=== PATIENT | female | born 1940 | race Caucasian/White ===

== ENCOUNTER → 2016-09-22 | Outpatient (CLI) | payer MEDICARE ==
--- NOTE | 2016-09-23 07:48 | XR ---
EXAMINATION TYPE: XR chest 2V DATE OF EXAM: 09/22/2016 9:20 AM COMPARISON: NONE HISTORY: Shortness of breath TECHNIQUE: Frontal and lateral views of the chest are obtained. FINDINGS: Scattered senescent parenchymal changes noted. Hyperinflation compatible with COPD. No evidence for infiltrate. No evidence for atelectasis. Heart size is stable. Mediastinal structures are stable and grossly unremarkable. No evidence for hilar prominence. Degenerative changes dorsal spine. IMPRESSION: 1. No evidence for acute pulmonary disease.
== END | disposition home or self-care (01) ==
LOC: RADXRYALE 09:02
PROVIDERS: ATTEND Otolaryngology
DX: J40 Bronchitis, not specified as acute or chronic (principal)
CPT/HCPCS: 71020

== ENCOUNTER → 2017-09-07 | Outpatient (CLI) | payer MEDICARE ==
--- NOTE | 2017-09-07 14:13 | XR ---
EXAMINATION TYPE: XR chest 2V DATE OF EXAM: 09/07/2017 COMPARISON: 09/22/2016 TECHNIQUE: PA and lateral views submitted. HISTORY: Cough FINDINGS: The lungs are clear and there is no pneumothorax, pleural effusion, or focal pneumonia. The heart i s enlarged. Hypertrophic and degenerative change of the spine noted. No overt failure. Biapical pleur al thickening. Arthropathy of the shoulders. IMPRESSION: 1. No acute process.
== END | disposition home or self-care (01) ==
LOC: RADXRYALE 13:57
PROVIDERS: ATTEND Otolaryngology
DX: J42 Unspecified chronic bronchitis (principal)
CPT/HCPCS: 71046

== ENCOUNTER 2020-03-30 19:53 | Inpatient (IN) | payer MEDICARE ==
[2020-03-30] MEDS ORDERED: SODIUM CHLORIDE 0.9% 1,000 ML IV ONE (20:10)
[2020-03-30] MEDS ORDERED: ASPIRIN 81 MG PO STA (20:10)
[2020-03-30 20:39] LABS: Basophils # (A) 0.1 k/uL (0-0.2); Basophils % (A) 1 %; Eosinophils # (A) 0.1 k/uL (0-0.7); Eosinophils % (A) 1 %; HCT 48.1 % (34.0-46.0); HGB 15.4 gm/dL (11.4-16.0); Lymphocytes # (A) 1.9 k/uL (1.0-4.8); Lymphocytes % (A) 17 %; MCH 27.5 pg (25.0-35.0); MCHC 31.9 g/dL (31.0-37.0); MCV 86.2 fL (80.0-100.0); Mean Platelet Volume 9.5; Monocytes # (A) 1.1 k/uL (0-1.0); Monocytes % (A) 10 %; Neutrophils % (A) 71 %; Platelet Count 236 k/uL (150-450); RBC 5.58 m/uL (3.80-5.40); RDW 13.8 % (11.5-15.5); WBC 11.4 k/uL (3.8-10.6)
[2020-03-30] MEDS ORDERED: NOREPINEPHRINE 4 MG in SODIUM CHLORIDE 0.9% 250 ML IV SCH (20:45)
[2020-03-30 20:52] LABS: Albumin 3.7 g/dL (3.5-5.0); Calcium 9.3 mg/dL (8.4-10.2); Magnesium 1.7 mg/dL (1.6-2.3); Potassium 4.6 mmol/L (3.5-5.1); Total Bilirubin 0.9 mg/dL (0.2-1.3); Total Protein 6.1 g/dL (6.3-8.2)
[2020-03-30 20:54] LABS: INR 0.9 (<1.2); Partial Thromboplastin Time 21.6 sec (22.0-30.0); Prothrombin Time 9.9 sec (9.0-12.0)
--- NOTE | 2020-03-30 20:56 | ED ---
Chest Pain HPI - General Chief Complaint: Chest Pain Stated Complaint: Chest Pain, SOB Time Seen by Provider: 03/30/20 20:10 Source: patient Mode of arrival: wheelchair - History of Present Illness Initial Comments: Patient is an 79-year-old female presents emergency Department with reported diaphoresis. Patient reports that earlier today she had a headache. Daughter states that this is common for her to have when the weather changes. There is nothing new or different about her headache. Around 6 PM she suddenly felt like she was going to pass out. She felt extremely diaphoretic and fatigue. Patient arrives pale, bradycardic and hypotensive. She has a history of diabetes. Denies any recent medication changes. States that she has chest pressure when prompted. Denies chest pain or shortness of breath. Denies previous cardiac history. Denies any fevers or chills. No cough. No ripping or tearing sensation to her back. Denies any abdominal pain. No changes in her bowel or bladder habits. Denies any melenic stools. Remainder the HPI is limited because the patient's current condition - Related Data Home Medications Medication Instructions Recorded Confirmed Aspirin [Adult Low Dose Aspirin EC] 81 mg PO DAILY 03/30/20 03/30/20 Atorvastatin [Lipitor] 40 mg PO DAILY 03/30/20 03/30/20 Glimepiride [Amaryl] 1 mg PO DAILY 03/30/20 03/30/20 Losartan [Cozaar] 50 mg PO DAILY 03/30/20 03/30/20 amLODIPine [Norvasc] 5 mg PO DAILY 03/30/20 03/30/20 atenoloL [Atenolol] 25 mg PO DAILY 03/30/20 03/30/20 metFORMIN HCL 1,000 mg PO BID 03/30/20 03/30/20 Previous Rx's Medication Instructions Recorded Ticagrelor [Brilinta] 90 mg PO BID 30 Days #60 tab 04/03/20 Allergies Allergy/AdvReac Type Severity Reaction Status Date / Time No Known Allergies Allergy Verified 03/30/20 20:30 Review of Systems ROS Statement: Those systems with pertinent positive or pertinent negative responses have been documented in the HPI. ROS Other: All systems not noted in ROS Statement are negative. EKG Findings - EKG Comments: EKG Findings:: EKG demonstrates A. fib with a rate of 136. QRS 152. QTC of 553. Elevation leads 2, 3, aVF with depressions in V2 through V6. Right branch block Past Medical History Past Medical History: Unable to Obtain History of Any Multi-Drug Resistant Organisms: None Reported Past Surgical History: Cholecystectomy, Orthopedic Surgery Additional Past Surgical History / Comment(s): knee Past Psychological History: No Psychological Hx Reported Smoking Status: Never smoker Past Alcohol Use History: None Reported Past Drug Use History: None Reported - Past Family History Mother Family Medical History: CVA/TIA General Exam Limitations: altered mental status General appearance: alert, lethargic, other (diaphoretic) Head exam: Present: atraumatic, normocephalic, normal inspection Eye exam: Present: normal appearance, PERRL, EOMI. Absent: scleral icterus, conjunctival injection, periorbital swelling ENT exam: Present: normal exam, mucous membranes moist Neck exam: Present: normal inspection. Absent: tenderness, meningismus, lymphadenopathy Respiratory exam: Present: decreased breath sounds Cardiovascular Exam: Present: tachycardia, irregular rhythm GI/Abdominal exam: Present: soft, normal bowel sounds. Absent: distended, tenderness, guarding, rebound, rigid Extremities exam: Present: normal inspection, full ROM, normal capillary refill. Absent: tenderness, pedal edema, joint swelling, calf tenderness Back exam: Present: normal inspection Neurological exam: Present: alert Psychiatric exam: Present: flat affect Skin exam: Present: diaphoretic Course Vital Signs 03/30/20 03/30/20 03/30/20 19:54 20:33 20:35 Temperature 97.5 F L Pulse Rate 48 L 114 H 109 H Respiratory 16 25 H 23 Rate Blood Pressure 79/53 60/32 60/32 O2 Sat by Pulse 95 96 Oximetry 03/30/20 03/30/20 03/30/20 20:40 20:45 20:50 Temperature Pulse Rate 112 H 102 H 100 Respiratory 23 21 19 Rate Blood Pressure 77/35 81/21 73/55 O2 Sat by Pulse 96 96 96 Oximetry 03/30/20 03/30/20 03/30/20 20:55 21:00 21:05 Temperature Pulse Rate 120 H 137 H 135 H Respiratory 15 26 H 28 H Rate Blood Pressure 95/23 82/62 93/66 O2 Sat by Pulse 95 96 Oximetry 03/30/20 03/30/20 03/30/20 21:10 21:15 21:20 Temperature Pulse Rate 124 H 146 H 135 H Respiratory 21 22 21 Rate Blood Pressure 118/70 137/71 O2 Sat by Pulse 97 Oximetry 03/30/20 03/30/20 21:25 21:30 Temperature Pulse Rate 138 H 170 H Respiratory 21 24 Rate Blood Pressure 104/89 119/90 O2 Sat by Pulse 98 Oximetry - Reevaluation(s) Reevaluation #1: Spoke with Dr. Grace at 2020 in regards to patient's EKG. EKG sent to Dr. Grace for review at 202503/30/20 20:26 Reevaluation #2: Once again spoke to Dr. Grace who states patient does not meet STEMI criteria. Would like to be contacted about patient's continued care and labs. Recommending fluids, Levophed and lab studies 03/30/20 20:29 Reevaluation #3: Spoke to Dr. Grace regarding the patient's care. Will take patient to manager laboratory as patient remains persistently hypotensive. Few lab studies have returned, all of which are within normal range. Trop and BNP still pending. Cath team activated 03/30/20 20:54 Chest Pain MDM - MDM Upon arrival the patient is placed into room 8. A thorough history and physical exam was performed. Peripheral IV is established. Laboratory studies were conducted. I did obtain an EKG on the patient which was concerning for afib, elevation in inferior leads. I discussed the case immediately with Dr. Grace who recommended laboratory studies, fluids and further testing. The patient was given a 2 L bolus of normal saline. Blood pressure remains low. Laboratory studies were conducted and a portal chest x-ray was performed. I discussed the case with Dr. Grace twice more - details provided in course. Due to her persistent diaphoresis and hypotension with abn ekg, Dr. Grace does agree that he will take the patient to the catheterization lab. Heart rate remained anywhere from 105 to 115 for the majority in the emergency department. Levophed is started by peripheral IV. Patient given [address] Grace does present to the emergency room and evaluates the patient. He does take her upstairs. I discussed the case with Denisha from [facility] as well as Dr. Sidhu. Patient's blood work does return after the patient is already upstairs. It reveals a troponin of 2.9 and a BNP of 10,800. Patient's chest x-ray was remarkable for pleural reaction and fluid with minimal infiltrate left lung base. Patient was taken to the Lead Process [facility] in critical, yet stable condition with improving blood pressures on Levaquin Critical Care Time Critical Care Time: Yes Critical Care Time: 35 minutes Disposition Clinical Impression: Chest pain, Hypotension, Afib Disposition: ADMITTED IP TO THIS [facility] Condition: Serious Is patient prescribed a controlled substance at d/c from ED?: No Decision to Admit Reason: Admit from EC Decision Date: 03/30/20 Decision Time: 21:33
--- NOTE | 2020-03-30 21:20 | XR ---
EXAMINATION TYPE: XR chest 1V portable DATE OF EXAM: 03/30/2020 COMPARISON: 09/22/2016 HISTORY: Chest pain TECHNIQUE: Single view. There is some pleural reaction lateral left lung base. The right lung is clear. There is no heart will lure. Heart is slightly enlarged. There are chest leads. IMPRESSION: Pleural reaction and fluid and minimal infiltrate left lung base is mostly new compared t o old exam. No heart failure.
[2020-03-30] MEDS ORDERED: NALOXONE 0.4 MG/ML 1 ML VIAL IV PRN (21:33)
[2020-03-30] MEDS ORDERED: IV FLUID CONTINUATION 1,000 ML IV ONE (21:40)
[2020-03-30] MEDS ORDERED: LIDOCAINE 1% INJ 10MG/ML (20 ML MDV) SQ ONE (21:48)
[2020-03-30] MEDS ORDERED: HEPARIN SODIUM 1,000 UN/ML (10ML VL) IV ONE (21:53)
[2020-03-30] MEDS ORDERED: DEXTROSE 5% IN WATER 100 ML with AMIODARONE 150 MG IV ONE (21:53)
[2020-03-30] MEDS ORDERED: METOPROLOL TARTRATE 5 MG/5 ML VIAL IVP ONE (21:53)
[2020-03-30] MEDS ORDERED: TICAGRELOR 90 MG TAB PO ONE (22:19)
--- NOTE | 2020-03-30 22:19 | CONS ---
CONSULTATION CHIEF COMPLAINT: Chest pain. This is an 79-year-old lady with history of hypertension, diabetes, and dyslipidemia who presented to hospital with sudden onset chest pain an hour prior to coming into the hospital this evening. She describes it as a pressure radiating to her back. When she first arrived, she was in new onset atrial fibrillation with rapid ventricular rate and was hypotensive. She was resuscitated with fluids and Levophed. Heart rate has improved and the blood pressure is improved. At the time of my evaluation she still has pain. The EKG shows sinus rhythm, inferior wall myocardial infarction and right bundle branch block. Given the persistent chest pain and abnormal EKG, I advised her to undergo emergent cardiac catheterization. The patient has decided to proceed with this understanding risks and benefits. ALLERGIES: There are no known drug allergies. MEDICATIONS: Are as charted. PAST MEDICAL HISTORY: Significant for hypertension, diabetes, dyslipidemia. REVIEW OF SYSTEMS: Significant for chest pain. PHYSICAL EXAMINATION: On exam she was in atrial fibrillation with poorly controlled ventricular rate. Blood pressure is low at 110/70. There is no jugular venous distention. Carotid upstroke is normal. There is no bruit. Chest exam reveals good air entry bilaterally. Heart exam reveals first and second heart sounds. No gallop. Exam of extremities did not reveal any edema. Peripheral pulses are felt. LABS: Have been reviewed. ASSESSMENT: 1. Acute ischemic syndrome. 2. New onset atrial fibrillation with rapid ventricular rate. PLAN: Patient will undergo cardiac catheterization and then we will decide on further course of action. MMODL / IJN: [id number] /
[2020-03-30] MEDS ORDERED: IOPAMIDOL-370 125ML BTL INJ ONE (22:22)
[2020-03-30] MEDS ORDERED: ONDANSETRON 4 MG/2 ML VIAL IVP ONE (22:45)
[2020-03-30] MEDS ORDERED: FUROSEMIDE 10 MG/ML 4 ML VIAL IV ONE (22:45)
[2020-03-30] MEDS ORDERED: IOPAMIDOL-370 100ML BTL INJ ONE (22:52)
[2020-03-30] MEDS ORDERED: ATROPINE SULFATE 0.1 MG/ML 10ML SYRINGE IV PRN (23:04)
[2020-03-30] MEDS ORDERED: MAG HYDROX/AL HYDROX/SIMETH 30 ML CUP PO PRN (23:04)
[2020-03-30] MEDS ORDERED: NITROGLYCERIN SL TABS 0.4 MG TAB SUBLINGUAL PRN (23:04)
[2020-03-30] MEDS ORDERED: RX INFO: IV CONTRAST WAS GIVEN 1 EACH MISC MISCELLANE PRN (23:04)
[2020-03-30 23:08] LABS: Glucose,Whole Blood 259 mg/dL (75-99)
--- NOTE | 2020-03-30 23:25 | P.PRCINT ---
Percutaneous Coronary Int. - Percutaneous Coronary Intervention Percutaneous Coronary Intervention: Procedures performed: PCI of proximal LAD with a 2.75 x 23mm Xience drug-eluting stent, postdilated with a 3.25 noncompliant balloon, left femoral access, left ventricular pressure measurement, Angio-Seal bilateral femoral arteries Procedure performed by: Dr Michael Garay DO Indications: Non-STEMI, cardiogenic shock, cardiomyopathy, multivessel CAD HPI: Patient is a pleasant 79-year-old female with history of hypertension, hyperlipidemia, diabetes mellitus on oral medications who presents secondary to acute onset of chest pain at approximately 6 PM today. She denies similar episodes in the past. She was found to be hypotensive with initial blood pressures in the 60s and 70s in the emergency department which improved with Levophed drip. She was found to be tachycardic with heart rates 130s to 140s, diffuse ST changes with Q waves in the inferior leads and therefore catheterization lab was activated by my partner. A diagnostic heart catheterization was performed by my partner to further assess, please see separate dictation for full details. The patient was noted to have normal left main, 100% occlusion of proximal LAD, mild 30% circumflex disease, [id number] collaterals and right coronary artery 100% occluded. I was asked to evaluate and perform intervention to the LAD. Conscious sedation: Conscious sedation was performed under the direct supervision of myself using Versed and Fentanyl for a total of 44 mins. Description of procedure: The risks, benefits and alternatives of heart catheterization and PCI were explained in detail to the patient before the procedure and informed consent was obtained. Patient had diagnostic coronary angiography performed by my partner and was left on the catheterization table. Patient had been prepped and draped in the usual fashion and a 6Fr sheath had been placed in the right femoral artery by my partner. A decision was made to intervene on the LAD as prior EKG from the office had shown prior Q waves in the inferior leads and LAD with acute thrombus. Heparin was given for an ACT greater than 250. A 6Fr EBU 3.5 guide was used to engage the left main. Patient had become somewhat more hypotensive requiring increase in Levophed and therefore left femoral access was quickly obtained and a 6Fr sheath was placed in the left femoral artery. The patient however was tolerating her pressures while on increased dose of pressors and therefore an Impella was not used. A 0.014 BMW wire was placed in the distal vessel. Next predilation was performed using a 2.5 x 12 compliant balloon. A 2.75 x 23 mm Xience HUI stent was then placed at the proximal LAD. The stent was postdilated with a 3.25 noncompliant balloon. Angiograms were obtained in multiple views. Pre intervention there was 100% stenosis and TAWANDA 0 flow and post intervention there was 0% residual stenosis and TAWANDA 2 flow due to distal embolization and elevated LVEDP and no evidence of any dissection. There was "pinching" of a small caliber diagonal branch which was felt best treated medically with TAWANDA-3 flow of the diagonal branch. Next a 6-Hong Konger pigtail was inserted into the left ventricle and pressure measurements were obtained. Patient was chest pain-free by the end of the procedure however some shortness of breath. The wire was then removed and final angiograms were obtained. Right and left femoral angiography was performed which showed adequate anatomy for closure. A 6-H[place] Konger Angio-Seal was placed in both the right and left femoral artery with hemostasis achieved. The patient tolerated the procedure well with help of norepinephrine throughout the case. Patient's norepinephrine was able to be weaned off at the conclusion of the case. The patient was transferred to the ICU off of pressors. LV: 95/20, LVEDP 32mmHg Conclusions: 1. Successful PCI of proximal LAD with a 2.75 x 23mm Xience HUI, postdilated with a 3.25 noncompliant balloon. 2. Cardiogenic shock requiring pressors 3. Elevated LVEDP at 32 mmHg 4. Non-STEMI Plan: 1. Aggressive risk factor modifications per most recent ACC/AHA guidelines. 2. Continue dual antiplatelets for 12 months. 3. Check formal 2-D echo 4. Patient was given IV Lasix on the table for elevated LVEDP. Would avoid beta boris for the next 24 hours as she is in acute cardiogenic shock. Hopefully add beta boris when heart failure more stable. Optimize heart failure treatment.
[2020-03-31] MEDS ORDERED: HYDROcodone/APAP 5-325MG 1 EACH TAB PO PRN (02:00)
[2020-03-31 05:00] LABS: Basophils % (A) 0 %; Eosinophils % (A) 0 %; HCT 47.9 % (34.0-46.0); HGB 14.9 gm/dL (11.4-16.0); Hypochromasia Slight; Lymphocytes # (A) 0.8 k/uL (1.0-4.8); Lymphocytes % (A) 5 %; MCH 27.6 pg (25.0-35.0); MCHC 31.1 g/dL (31.0-37.0); MCV 88.6 fL (80.0-100.0); Mean Platelet Volume 8.6; Monocytes # (A) 1.5 k/uL (0-1.0); Monocytes % (A) 9 %; Neutrophils # (A) 14.3 k/uL (1.3-7.7); Neutrophils % (A) 85 %; Platelet Count 214 k/uL (150-450); RDW 13.7 % (11.5-15.5); WBC 16.8 k/uL (3.8-10.6)
[2020-03-31 05:22] LABS: Calcium 8.3 mg/dL (8.4-10.2); Potassium 4.5 mmol/L (3.5-5.1)
[2020-03-31 06:42] LABS: Glucose,Whole Blood 218 mg/dL (75-99)
--- NOTE | 2020-03-31 07:46 | CC ---
CARDIAC CATHETERIZATION REPORT PROCEDURE: Cardiac catheterization. INDICATION: Acute coronary syndrome with cardiogenic shock. HISTORY OF PRESENT ILLNESS: This is an 79-year-old lady with history of hypertension, diabetes, dyslipidemia, who presented to the hospital with chest pain that started around 6 o'clock this evening. Her daughter drove her to the emergency room where she was found to be in atrial fibrillation, had right bundle branch block with inferior Q-waves. I advised her to undergo emergent cardiac catheterization with a view to defining her coronary anatomy and after for catheter based revascularization. The patient was hypotensive and was initially given fluids and subsequently started on Levophed. The patient's chest pain was improving by the time I saw her in the ER, but she still had pain in the back of her chest. PROCEDURE NOTE: After obtaining after obtaining informed consent, left heart catheterization and coronary angiogram are performed via the right femoral artery using standard Tejas catheters. The patient tolerated the procedure well without any obvious immediate complications. ANESTHESIA: Patient received moderate conscious sedation. Total sedation time was 9 minutes. FINDINGS: HEMODYNAMICS: Central aortic pressure is 90/60 mm. The left ventriculogram is not performed. ANGIOGRAPHIC DATA: LEFT MAIN CORONARY ARTERY: The left main coronary artery is a normal vessel, divides into left anterior descending coronary artery and circumflex coronary artery. LEFT ANTERIOR DESCENDING CORONARY ARTERY: LAD is totally occluded proximally. CIRCUMFLEX CORONARY ARTERY: Circumflex coronary artery and its branches are free of significant disease. There are extensive collaterals to the distal right coronary artery. RIGHT CORONARY ARTERY: Right coronary artery is totally occluded in the proximal part. CONCLUSIONS: 1. Chronic total occlusion of the right coronary artery with collaterals from the left to the distal right. 2. Acute occlusion of the proximal left anterior descending. PLAN: Will proceed with angioplasty of the LAD. The patient is critically ill and her prognosis is guarded. I reviewed angiographic data and the plans with the patient's daughter doctor. Dr. Garay, the on-call printed circuit boards beveler, will proceed with the angioplasty. MMODL / IJN: [id number] /
[2020-03-31] MEDS: TICAGRELOR 90 MG TAB PO SCH ×2 (08:35→23:01)
[2020-03-31] MEDS: ASPIRIN 81 MG PO SCH (08:35)
--- NOTE | 2020-03-31 09:03 | XR ---
EXAMINATION TYPE: XR chest 1V portable DATE OF EXAM: 03/31/2020 Comparison: 03/30/2020 Clinical History: 79-year-old female with CHF Findings: Heart mildly enlarged. Aorta and pulmonary vasculature within normal limits. Continued blunting of th e left costophrenic angle. Interstitial density appears largely chronic at this point. Impression: Mild cardiomegaly and continued small left effusion with adjacent atelectasis and or consolidation.
--- NOTE | 2020-03-31 10:59 | P.CNPUL ---
History of Present Illness Consult date: 03/31/20 Requesting physician: Kira Camacho Reason for consult: other (Acute myocardial infarction) Chief complaint: Chest pain and diaphoresis. History of present illness: This is an 79-year-old female with history of hypertension, diabetes, hypercholesterolemia, no previous documented history of underlying coronary artery disease. Patient was brought into the ER with sudden episode of diaphoresis, patient suddenly broke into sweats. On her way to the hospital, patient had some vague left-sided chest pain and substernal pain. She felt extremely tired and fatigued. And upon arrival to the ER, she was noted to be hypotensive, bradycardic, and she was quite pale. EKG questioned ST elevation myocardial infarction. And she continued to have chest pain while in the ER. Seen by cardiology on consultation, and she underwent cardiac catheterization were and she was found to have significant LAD lesion underwent stenting by Dr. Garay. Postoperatively patient felt much better, sent to the intensive care unit, she is asymptomatic at this point, denies any chest pain, denies any shortness of breath, and she remained hemodynamically stable. Denies any shortness of breath. Chest x-ray in the ICU showed mild cardiomegaly and small left effusion with atelectasis. Clinically however the patient has no active pulmonary symptoms she is on 5 L nasal cannula. Tapered down to 3 L and her O2 saturation remained 97%. Review of Systems Constitutional: No fever no chills no weight loss. Patient was diaphoretic on presentation HEENT: Negative Pulmonary: Negative Cardiac: As noted in HPI. GI: Negative Genitourinary: Negative Musculoskeletal: Negative Skin: Negative Endocrine: Negative patient is known to have history of controlled diabetes. Musculoskeletal: Negative Hematologic: No clotting bleeding or bruising Neurologic: Negative Psychiatric: Negative Past Medical History Past Medical History: Unable to Obtain Additional Past Medical History / Comment(s): Patient is known to have history of hypertension, hypercholesterolemia, type 2 diabetes. Patient had previous cholecystectomy. History of Any Multi-Drug Resistant Organisms: None Reported Past Surgical History: Cholecystectomy, Orthopedic Surgery Additional Past Surgical History / Comment(s): knee Past Anesthesia/Blood Transfusion Reactions: No Reported Reaction Past Psychological History: No Psychological Hx Reported Smoking Status: Never smoker Past Alcohol Use History: None Reported Past Drug Use History: None Reported - Past Family History Mother Family Medical History: CVA/TIA Medications and Allergies Home Medications Medication Instructions Recorded Confirmed Type Aspirin [Adult Low Dose Aspirin EC] 81 mg PO DAILY 03/30/20 03/30/20 History Atorvastatin [Lipitor] 40 mg PO DAILY 03/30/20 03/30/20 History Glimepiride [Amaryl] 1 mg PO DAILY 03/30/20 03/30/20 History Losartan [Cozaar] 50 mg PO DAILY 03/30/20 03/30/20 History amLODIPine [Norvasc] 5 mg PO DAILY 03/30/20 03/30/20 History atenoloL [Atenolol] 25 mg PO DAILY 03/30/20 03/30/20 History metFORMIN HCL 1,000 mg PO BID 03/30/20 03/30/20 History Allergies Allergy/AdvReac Type Severity Reaction Status Date / Time No Known Allergies Allergy Verified 03/30/20 20:30 Physical Exam Vitals: Vital Signs Temp Pulse Pulse Resp BP BP Pulse Ox 03/31/20 07:30 67 31 H 120/69 98 03/31/20 07:00 66 27 H 109/67 96 03/31/20 06:30 67 25 H 96 03/31/20 06:00 66 23 112/59 96 03/31/20 05:30 64 24 104/77 96 03/31/20 05:00 65 26 H 107/70 96 03/31/20 04:30 66 23 101/60 96 03/31/20 04:00 97.6 F 64 26 H 99/63 96 03/31/20 03:30 65 26 H 111/69 96 03/31/20 03:00 66 26 H 111/70 95 03/31/20 02:30 65 25 H 113/85 96 03/31/20 02:00 66 30 H 115/72 97 03/31/20 01:30 65 24 110/65 97 03/31/20 01:00 68 32 H 93 L 03/31/20 00:30 66 21 112/66 96 03/31/20 00:00 96.6 F L 74 20 120/50 93 L 03/30/20 23:30 80 8 L 95 03/30/20 23:24 80 7 L 117/74 95 03/30/20 23:20 79 13 92 L 03/30/20 23:19 80 15 117/74 03/30/20 23:15 83 34 H 91 L 03/30/20 23:10 80 12 117/74 03/30/20 23:06 81 14 03/30/20 23:04 79 12 03/30/20 21:49 96.9 F L 78 12 120/50 96 03/30/20 21:35 119/90 03/30/20 21:30 170 H 24 119/90 03/30/20 21:25 138 H 21 104/89 98 03/30/20 21:20 135 H 21 97 03/30/20 21:15 146 H 22 137/71 03/30/20 21:10 124 H 21 118/70 03/30/20 21:05 135 H 28 H 93/66 96 03/30/20 21:00 137 H 26 H 82/62 95 03/30/20 20:55 120 H 15 95/23 03/30/20 20:50 100 19 73/55 96 03/30/20 20:45 102 H 21 81/21 96 03/30/20 20:40 112 H 23 77/35 96 03/30/20 20:35 109 H 23 60/32 03/30/20 20:33 114 H 25 H 60/32 96 03/30/20 19:54 97.5 F L 48 L 16 79/53 95 Intake and Output 03/30/20 03/31/20 03/31/20 22:59 06:59 14:59 Intake Total 300 140 20 Output Total 1225 60 Balance 300 -1085 -40 Intake: IV 300 140 20 .9@ 20 140 20 Output: Urine 1225 60 Other: Voiding Method Indwelling Catheter Weight 90.718 kg 85.2 kg Physical Exam: Revealed 79-year-old female in no distress. Very pleasant. Head: Atraumatic, normocephalic. HEENT:[Neck is supple.] [No neck masses.] [No thyromegaly.] [No JVD.] Chest: [Symmetrical chest expansion, diminished breath sounds at the left base, no crackles or rhonchi or wheezes. Cardiac Exam: [Normal S1 and S2, no S3 gallop, no murmur.] Abdomen: [Obese, Soft, nontender, no megaly, no rebound, no guarding, normal bowel sounds.] Extremities: [No clubbing, no edema, no cyanosis.] Neurological Exam: [No focal neurologic deficit.] Alert and oriented 3. Psychiatric: Normal mood, affect and normal mental status examination. Skin: No rashes. Lymphatics: No supraclavicular or cervical lymphadenopathy. Results - Laboratory Findings CBC and BMP: 03/31/20 04:24 03/31/20 04:24 PT/INR, D-dimer PT 9.9 sec (9.0-12.0) 03/30/20 20:26 INR 0.9 (<1.2) 03/30/20 20:26 Abnormal lab findings: Abnormal Labs 03/30/20 03/30/20 03/30/20 20:26 20:26 20:26 WBC 11.4 H RBC 5.58 H Hct 48.1 H Neutrophils # 8.0 H Lymphocytes # Monocytes # 1.1 H APTT 21.6 L Carbon Dioxide 20 L BUN 20 H Creatinine Glucose 263 H POC Glucose (mg/dL) Calcium AST 49 H Troponin I Total Protein 6.1 L 03/30/20 03/30/20 03/31/20 20:26 23:06 04:24 WBC 16.8 H RBC Hct 47.9 H Neutrophils # 14.3 H Lymphocytes # 0.8 L Monocytes # 1.5 H APTT Carbon Dioxide BUN Creatinine Glucose POC Glucose (mg/dL) 259 H Calcium AST Troponin I 2.990 H* Total Protein 03/31/20 03/31/20 03/31/20 04:24 04:24 06:41 WBC RBC Hct Neutrophils # Lymphocytes # Monocytes # APTT Carbon Dioxide BUN 23 H Creatinine 1.17 H Glucose 280 H POC Glucose (mg/dL) 218 H Calcium 8.3 L AST Troponin I 133.000 H* Total Protein - Diagnostic Findings Chest x-ray: image reviewed (As noted in HPI. Small left pleural effusion and atelectasis.) Assessment and Plan Assessment: Impression: Acute non-ST elevation myocardial infarction Status post PCI of proximal LAD Multivessel coronary artery disease Acute systolic congestive heart failure with left pleural effusion. History of type 2 diabetes. History of benign essential hypertension. History of hypercholesterolemia. Recommendation: Continue brilinta Continue nitroglycerin. Continue blood pressure control. Continue aspirin and atorvastatin. Gentle diuresis as the patient is developing fairly good sized left-sided pleural effusion and it is cardiac in nature unless for otherwise. Continue to monitor the patient in the ICU. We will continue to follow. Time with Patient: Greater than 30
[2020-03-31] MEDS ORDERED: METOPROLOL SUCCINATE (ER) 25 MG TAB.ER.24H PO SCH (11:00)
[2020-03-31] MEDS: ACETAMINOPHEN TAB 500 MG TAB PO PRN (11:15)
[2020-03-31] MEDS: LOSARTAN 25 MG TAB PO SCH (11:16)
[2020-03-31 11:24] LABS: Glucose,Whole Blood 203 mg/dL (75-99)
[2020-03-31 11:43] VITALS: BMI 30.3
[2020-03-31] MEDS: INSULIN ASPART (NovoLOG) 100 UNIT/ML VIAL SQ SCH ×3 (12:12→23:00)
--- NOTE | 2020-03-31 12:50 | ECHOF ---
Referral Reason:Stent placed MEASUREMENTS -------- HEIGHT: 160.0 cm WEIGHT: 80.7 kg BP: 114/69 RVIDd: 3.0 cm (< 3.3) IVSd: 1.3 cm (0.6 - 1.1) LVIDd: 6.0 cm (3.9 - 5.3) LVPWd: 1.6 cm (0.6 - 1.1) IVSs: 1.7 cm LVIDs: 5.2 cm LVPWs: 1.8 cm LA Diam: 3.2 cm (2.7 - 3.8) LAESV Index (A-L): 17.10 ml/m Ao Diam: 3.3 cm (2.0 - 3.7) AV Cusp: 1.7 cm (1.5 - 2.6) MV EXCURSION: 11.714 mm (> 18.000) MV EF SLOPE: 34 mm/s (70 - 150) EPSS: 2.0 cm MV E Devon: 0.39 m/s MV DecT: 506 ms MV A Devon: 0.80 m/s MV E/A Ratio: 0.49 RAP: 15.00 mmHg RVSP: 45.26 mmHg FINDINGS -------- This was a technically adequate study. The left ventricle is moderately dilated. There is moderate concentric left ventricular hypertrophy . Overall left ventricular systolic function is severely impaired with, an EF between 20 - 25 %. 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 Mid i nferior LV wall motion is hypokinetic. Apical inferior LV wall motion is hypokinetic. Apical se ptum LV wall motion is hypokinetic. The right ventricle is normal in size. Normal LA size by volume 22+/-6 ml/m2. The right atrium is normal in size. Interatrial and interventricular septum intact. There is mild aortic valve sclerosis. Trace to mild aortic regurgitation. The mitral valve is normal. Mild tricuspid regurgitation present. There is mild to moderate pulmonary hypertension. The right ventricular systolic pressure, as measured by Doppler, is 45.26mmHg. There is no pulmonic regurgitation present. The aortic root size is normal. The inferior vena cava is dilated with no significant inspiratory collapse which is consistent estima terry right atrial pressure of >20 mmHg. There is no pericardial effusion. CONCLUSIONS -------- 1. The left ventricle is moderately dilated. 2. There is moderate concentric left ventricular hypertrophy. 3. Overall left ventricular systolic function is severely impaired with, an EF between 20 - 25 %. 4. Basal inferior LV wall motion is aneurysmal 5. Basal anteroseptal LV wall motion is akinetic. 6. Mid inferior LV wall motion is hypokinetic. 7. Apical inferior LV wall motion is hypokinetic. 8. Apical septum LV wall motion is hypokinetic. 9. There is mild aortic valve sclerosis. 10. Trace to mild aortic regurgitation. 11. Mild tricuspid regurgitation present. 12. There is mild to moderate pulmonary hypertension. 13. The right ventricular systolic pressure, as measured by Doppler, is 45.26mmHg. 14. There is no pulmonic regurgitation present. 15. The inferior vena cava is dilated with no significant inspiratory collapse which is consistent es timated right atrial pressure of >20 mmHg. 16. There is no pericardial effusion. LATHE OPERATOR: Christelle Payton RDCS
--- NOTE | 2020-03-31 14:07 | PN ---
PROGRESS NOTE Beth is an 79-year-old lady who is admitted to the hospital with acute onset chest pain and atrial fibrillation with rapid ventricular rate. She had evidence of inferior wall myocardial infarction. Underwent emergent cardiac catheterization that revealed a chronically occluded right coronary artery with a totally occluded LAD for which she underwent angioplasty with stent placement. This morning patient is feeling better. She is pain free. MEDICATIONS: She is on aspirin, Lipitor, Lasix Toprol-XL, and Brilinta. Blood sugars are elevated. She will be on a sliding scale. EXAM: Heart rate is 69 beats per minute. Blood pressure is 119/69, respiratory rate is 18, O2 saturation is 96%. There is no jugular venous distention. Chest exam reveals good air entry bilaterally. Heart exam reveals first and second heart sounds. No gallop. No murmur. Abdomen is soft. Exam of extremities did not reveal any edema. Peripheral pulses are felt. LABORATORY DATA: Labs show that the hemoglobin is 14.9, platelet count is 214. Potassium is 4.5, creatinine is 1.1. Her initial troponin was 2.9. The subsequent troponin was elevated to 133. BNP was elevated on admission at 10,800. IMAGING: The chest x-ray revealed mild cardiomegaly without any evidence of congestive heart failure. ASSESSMENT: Acute ischemic syndrome, status post catheterization and angioplasty of left anterior descending. PLAN: I will continue her on her current medications. Obtain a 2D echo to document her LV function. She can be in the ICU as a telemetry overflow. MIRIAN / DINON: [id number] /
[2020-03-31 16:37] LABS: Glucose,Whole Blood 157 mg/dL (75-99)
[2020-03-31] MEDS: FUROSEMIDE 20 MG TAB PO SCH (17:11)
[2020-03-31] MEDS ORDERED: METOPROLOL SUCCINATE (ER) 25 MG TAB.ER.24H PO STA (18:21)
[2020-03-31] MEDS ORDERED: AMIODARONE 360 MG in DEXTROSE 5% IN WATER 200 ML IV ONE ×2 (18:21)
[2020-03-31] MEDS ORDERED: DEXTROSE 5% IN WATER 100 ML with AMIODARONE 150 MG IV ONE (18:21)
--- NOTE | 2020-03-31 19:15 | P.HPIM ---
History of Present Illness This is a pleasant 79 years old female, with unknown past medical history. She is a patient of Dr. Sun. Presents because of sweating and chest pain, found to have hypotension upon admission through the emergency room. EKG was suspicious for ST depression in the anterior lateral leads, patient underwent emergent cardiac cath which showed critical disease in the coronary arteries she underwent angioplasty and stent placement of the LAD. Patient also found to be in cardiogenic shock needing pressors. Patient denies chest pain or dyspnea, she has back pain most likely musculoskeletal Dorsey catheter was placed in the emergency room Patient denies smoking, alcohol or illicit drug, patient she states she is diabetic and she supposed to be and metformin 1000 twice a day Currently vital signs stable. WBC went up to 16.8 K, rest of CBC, INR, BMP is unremarkable except very slightly high creatinine at 1.17. Sugar is elevated [id number]. Troponin was significantly elevated 0.33, liver enzymes not elevated. Chest x-ray: No acute process Review of Systems CONSTITUTIONAL: No fever, no malaise, no fatigue. HEENT: No recent visual problems or hearing problems. Denied any sore throat. CARDIOVASCULAR: No orthopnea, PND, no palpitations, no syncope. PULMONARY: No shortness of breath, no cough, no hemoptysis. GASTROINTESTINAL: No diarrhea, no nausea, no vomiting, no abdominal pain. Normoa ctive bowel sounds. NEUROLOGICAL: No headaches, no weakness, no numbness. HEMATOLOGICAL: Denies any bleeding or petechiae. GENITOURINARY: Denies any burning micturition, frequency, or urgency. MUSCULOSKELETAL/RHEUMATOLOGICAL: Denies any joint pain, swelling, or any muscle pain. ENDOCRINE: Denies any polyuria or polydipsia. Past Medical History Past Medical History: Unable to Obtain Additional Past Medical History / Comment(s): Patient is known to have history of hypertension, hypercholesterolemia, type 2 diabetes. Patient had previous cholecystectomy. History of Any Multi-Drug Resistant Organisms: None Reported Past Surgical History: Cholecystectomy, Orthopedic Surgery Additional Past Surgical History / Comment(s): knee Past Anesthesia/Blood Transfusion Reactions: No Reported Reaction Past Psychological History: No Psychological Hx Reported Smoking Status: Never smoker Past Alcohol Use History: None Reported Past Drug Use History: None Reported - Past Family History Mother Family Medical History: CVA/TIA Medications and Allergies Home Medications Medication Instructions Recorded Confirmed Type Aspirin [Adult Low Dose Aspirin EC] 81 mg PO DAILY 03/30/20 03/30/20 History Atorvastatin [Lipitor] 40 mg PO DAILY 03/30/20 03/30/20 History Glimepiride [Amaryl] 1 mg PO DAILY 03/30/20 03/30/20 History Losartan [Cozaar] 50 mg PO DAILY 03/30/20 03/30/20 History amLODIPine [Norvasc] 5 mg PO DAILY 03/30/20 03/30/20 History atenoloL [Atenolol] 25 mg PO DAILY 03/30/20 03/30/20 History metFORMIN HCL 1,000 mg PO BID 03/30/20 03/30/20 History Allergies Allergy/AdvReac Type Severity Reaction Status Date / Time No Known Allergies Allergy Verified 03/30/20 20:30 Physical Exam Vitals: Vital Signs Temp Pulse Pulse Resp BP BP Pulse Ox 03/31/20 10:30 68 23 120/74 97 03/31/20 10:00 68 24 115/76 97 03/31/20 09:30 67 22 127/73 97 03/31/20 09:00 72 24 113/73 96 03/31/20 08:30 98.1 F 73 26 H 100/71 97 03/31/20 08:00 75 23 119/71 96 03/31/20 07:30 67 31 H 120/69 98 03/31/20 07:00 66 27 H 109/67 96 03/31/20 06:30 67 25 H 96 03/31/20 06:00 66 23 112/59 96 03/31/20 05:30 64 24 104/77 96 03/31/20 05:00 65 26 H 107/70 96 03/31/20 04:30 66 23 101/60 96 03/31/20 04:00 97.6 F 64 26 H 99/63 96 03/31/20 03:30 65 26 H 111/69 96 03/31/20 03:00 66 26 H 111/70 95 03/31/20 02:30 65 25 H 113/85 96 03/31/20 02:00 66 30 H 115/72 97 03/31/20 01:30 65 24 110/65 97 03/31/20 01:00 68 32 H 93 L 03/31/20 00:30 66 21 112/66 96 03/31/20 00:00 96.6 F L 74 20 120/50 93 L 03/30/20 23:30 80 8 L 95 03/30/20 23:24 80 7 L 117/74 95 03/30/20 23:20 79 13 92 L 03/30/20 23:19 80 15 117/74 03/30/20 23:15 83 34 H 91 L 03/30/20 23:10 80 12 117/74 03/30/20 23:06 81 14 03/30/20 23:04 79 12 03/30/20 21:49 96.9 F L 78 12 120/50 96 03/30/20 21:35 119/90 03/30/20 21:30 170 H 24 119/90 03/30/20 21:25 138 H 21 104/89 98 03/30/20 21:20 135 H 21 97 03/30/20 21:15 146 H 22 137/71 03/30/20 21:10 124 H 21 118/70 03/30/20 21:05 135 H 28 H 93/66 96 03/30/20 21:00 137 H 26 H 82/62 95 03/30/20 20:55 120 H 15 95/23 03/30/20 20:50 100 19 73/55 96 03/30/20 20:45 102 H 21 81/21 96 03/30/20 20:40 112 H 23 77/35 96 03/30/20 20:35 109 H 23 60/32 03/30/20 20:33 114 H 25 H 60/32 96 03/30/20 19:54 97.5 F L 48 L 16 79/53 95 Intake and Output 03/30/20 03/31/20 03/31/20 22:59 06:59 14:59 Intake Total 300 140 20 Output Total 1225 60 Balance 300 -1085 -40 Intake: IV 300 140 20 .9@ 20 140 20 Output: Urine 1225 60 Other: Voiding Method Indwelling Catheter Weight 90.718 kg 85.2 kg GENERAL: The patient is alert and oriented x3, not in any acute distress. Well developed, well nourished. HEENT: Pupils are round and equally reacting to light. EOMI. No scleral icterus. No conjunctival pallor. Normocephalic, atraumatic. No pharyngeal erythema. No thyromegaly. CARDIOVASCULAR: S1 and S2 present. No murmurs, rubs, or gallops. PULMONARY: Chest is clear to auscultation, no wheezing or crackles. ABDOMEN: Soft, nontender, nondistended, normoactive bowel sounds. No palpable organomegaly. MUSCULOSKELETAL: No joint swelling or deformity. EXTREMITIES: No cyanosis, clubbing, or pedal edema. NEUROLOGICAL: Gross neurological examination did not reveal any focal deficits. SKIN: No rashes. No petechiae Results CBC & Chem 7: 03/31/20 04:24 03/31/20 04:24 Labs: Abnormal Lab Results - Last 24 Hours (Table) 03/30/20 03/30/20 03/30/20 Range/Units 20:26 20:26 20:26 WBC 11.4 H (3.8-10.6) k/uL RBC 5.58 H (3.80-5.40) m/uL Hct 48.1 H (34.0-46.0) % Neutrophils # 8.0 H (1.3-7.7) k/uL Lymphocytes # (1.0-4.8) k/uL Monocytes # 1.1 H (0-1.0) k/uL APTT 21.6 L (22.0-30.0) sec Carbon Dioxide 20 L (22-30) mmol/L BUN 20 H (7-17) mg/dL Creatinine (0.52-1.04) mg/dL Glucose 263 H (74-99) mg/dL POC Glucose (mg/dL) (75-99) mg/dL Calcium (8.4-10.2) mg/dL AST 49 H (14-36) U/L Troponin I (0.000-0.034) ng/mL Total Protein 6.1 L (6.3-8.2) g/dL 03/30/20 03/30/20 03/31/20 Range/Units 20:26 23:06 04:24 WBC 16.8 H (3.8-10.6) k/uL RBC (3.80-5.40) m/uL Hct 47.9 H (34.0-46.0) % Neutrophils # 14.3 H (1.3-7.7) k/uL Lymphocytes # 0.8 L (1.0-4.8) k/uL Monocytes # 1.5 H (0-1.0) k/uL APTT (22.0-30.0) sec Carbon Dioxide (22-30) mmol/L BUN (7-17) mg/dL Creatinine (0.52-1.04) mg/dL Glucose (74-99) mg/dL POC Glucose (mg/dL) 259 H (75-99) mg/dL Calcium (8.4-10.2) mg/dL AST (14-36) U/L Troponin I 2.990 H* (0.000-0.034) ng/mL Total Protein (6.3-8.2) g/dL 03/31/20 03/31/20 03/31/20 Range/Units 04:24 04:24 06:41 WBC (3.8-10.6) k/uL RBC (3.80-5.40) m/uL Hct (34.0-46.0) % Neutrophils # (1.3-7.7) k/uL Lymphocytes # (1.0-4.8) k/uL Monocytes # (0-1.0) k/uL APTT (22.0-30.0) sec Carbon Dioxide (22-30) mmol/L BUN 23 H (7-17) mg/dL Creatinine 1.17 H (0.52-1.04) mg/dL Glucose 280 H (74-99) mg/dL POC Glucose (mg/dL) 218 H (75-99) mg/dL Calcium 8.3 L (8.4-10.2) mg/dL AST (14-36) U/L Troponin I 133.000 H* (0.000-0.034) ng/mL Total Protein (6.3-8.2) g/dL Thrombosis Risk Factor Assmnt - Choose All That Apply Each Factor Represents 1 point: Obesity (BMI >25) Each Risk Factor Represents 3 Points: Age 75 years or older Other congenital or acquired thrombophilia - If yes, enter type in comment: No Thrombosis Risk Factor Assessment Total Risk Factor Score: 4 Thrombosis Risk Factor Assessment Level: Moderate Risk Assessment and Plan Assessment: Acute non-ST elevation myocardial infarction, status post cardiac cath showed triple vessel coronary artery disease and status post stent placement of the LAD Cardiogenic shock status post pressors, improved Leukocytosis, mostly reactive. Diabetes mellitus with Hyperglycemia, check hemoglobin A1c Plan: This is a pleasant 79 years old female who presents with cardiogenic shock and non-STEMI, she status post stent placement. Continue with aspirin and Brilinta and check echocardiogram. Follow-up recommendation by pulmonary/critical care team. No need for pressors currently. Continue with insulin sliding scale. Metformin on hold Labs and medication were reviewed.. Continue same treatment. Continue with symptomatic treatment. Resume home medication. Monitor lytes and vitals. DVT and GI prophylaxis. Further recommendations of the clinical course of the patient DVT prophylaxis: Subcutaneous heparin GI Prophylaxis: Pepcid Prognosis is guarded
[2020-03-31 19:48] LABS: Hemoglobin A1C 7.9 % (4.0-6.0)
[2020-03-31] MEDS: LIDOCAINE 5% PATCH TOPICAL SCH (20:08)
[2020-03-31 20:20] LABS: Glucose,Whole Blood 244 mg/dL (75-99)
[2020-03-31 20:35] LABS: Magnesium 1.5 mg/dL (1.6-2.3)
[2020-03-31] MEDS ORDERED: POTASSIUM CHLORIDE ER 20 MEQ TAB.ER PO STA (21:06)
[2020-03-31] MEDS: MAGNESIUM SULFATE-D5W PMX 1 GM in DEXTROSE/WATER 1 100ML.BAG IVPB SCH ×2 (21:25→21:27)
[2020-03-31] MEDS ORDERED: ESMOLOL IN SODIUM CHLORIDE PMX 2.5 GM in SALINE 1 250ML.BAG IV SCH (21:45)
[2020-03-31] MEDS ORDERED: LIDOCAINE-D5W PMX 2G/250ML 2,000 MG in DEXTROSE/WATER 1 250ML.BAG IV SCH (22:00)
[2020-03-31] MEDS: HEPARIN SODIUM,PORCINE 5,000 UNIT/ML 1 ML VIAL SQ SCH (22:58)
[2020-03-31] MEDS: FAMOTIDINE 20 MG/2 ML VIAL IV SCH (22:59)
[2020-03-31] MEDS: ATORVASTATIN 80 MG TAB PO SCH (22:59)
[2020-04-01] MEDS ORDERED: AMIODARONE 300 MG in DEXTROSE 5% IN WATER 250 ML IV SCH ×6 (00:21→14:30)
[2020-04-01] MEDS ORDERED: AMIODARONE 360 MG in DEXTROSE 5% IN WATER 200 ML IV ONE ×4 (02:18→19:00)
[2020-04-01 05:06] LABS: Basophils % (A) 0 %; Eosinophils % (A) 0 %; HCT 45.4 % (34.0-46.0); HGB 14.2 gm/dL (11.4-16.0); Hypochromasia Slight; Lymphocytes # (A) 0.8 k/uL (1.0-4.8); Lymphocytes % (A) 6 %; MCH 27.6 pg (25.0-35.0); MCHC 31.2 g/dL (31.0-37.0); MCV 88.3 fL (80.0-100.0); Mean Platelet Volume 8.7; Monocytes # (A) 1.5 k/uL (0-1.0); Monocytes % (A) 11 %; Neutrophils # (A) 10.5 k/uL (1.3-7.7); Neutrophils % (A) 80 %; Platelet Count 199 k/uL (150-450); RBC 5.14 m/uL (3.80-5.40); RDW 13.8 % (11.5-15.5); WBC 13.1 k/uL (3.8-10.6)
[2020-04-01 05:29] LABS: Calcium 8.7 mg/dL (8.4-10.2); Magnesium 2.3 mg/dL (1.6-2.3)
[2020-04-01 06:49] LABS: Glucose,Whole Blood 244 mg/dL (75-99)
[2020-04-01] MEDS: INSULIN ASPART (NovoLOG) 100 UNIT/ML VIAL SQ SCH ×5 (06:49→21:29)
[2020-04-01] MEDS: FUROSEMIDE 20 MG TAB PO SCH ×2 (09:30→16:29)
[2020-04-01] MEDS: ASPIRIN 81 MG PO SCH (09:30)
[2020-04-01] MEDS: FAMOTIDINE 20 MG/2 ML VIAL IV SCH (09:30)
[2020-04-01] MEDS: HEPARIN SODIUM,PORCINE 5,000 UNIT/ML 1 ML VIAL SQ SCH (09:30)
[2020-04-01] MEDS: LOSARTAN 25 MG TAB PO SCH (09:31)
[2020-04-01] MEDS: LIDOCAINE 5% PATCH TOPICAL SCH (09:31)
[2020-04-01] MEDS: METOPROLOL SUCCINATE (ER) 50 MG TAB.ER.24H PO SCH (09:31)
[2020-04-01] MEDS: TICAGRELOR 90 MG TAB PO SCH ×2 (09:32→21:27)
[2020-04-01 12:28] LABS: Glucose,Whole Blood 223 mg/dL (75-99)
--- NOTE | 2020-04-01 12:52 | P.PN ---
Subjective Progress Note Date: 04/01/20 Principal diagnosis: Acute non-ST elevated myocardial infarction, A. fib with RVR This is an 79-year-old female with history of hypertension, diabetes, hypercholesterolemia, no previous documented history of underlying coronary artery disease. Patient was brought into the ER with sudden episode of diaphoresis, patient suddenly broke into sweats. On her way to the hospital, alejandra schaefer had some vague left-sided chest pain and substernal pain. She felt extremely tired and fatigued. And upon arrival to the ER, she was noted to be hypotensive, bradycardic, and she was quite pale. EKG questioned ST elevation myocardial infarction. And she continued to have chest pain while in the ER. Seen by cardiology on consultation, and she underwent cardiac catheterization were and she was found to have significant LAD lesion underwent stenting by Dr. Garay. Postoperatively patient felt much better, sent to the intensive care unit, she is asymptomatic at this point, denies any chest pain, denies any shortness of breath, and she remained hemodynamically stable. Denies any s hortness of breath. Chest x-ray in the ICU showed mild cardiomegaly and small left effusion with atelectasis. Clinically however the patient has no active pulmonary symptoms she is on 5 L nasal cannula. Tapered down to 3 L and her O2 saturation remained 97%. On 04/01/2020 patient seen in follow-up in the intensive care unit, apparently patient had 4 episodes of sustained V. tach last night requiring synchronized cardioversion. Patient was started on amiodarone infusion on which she remains currently running at 0.5 mg/m, no other IVs infusing, she is awake and alert, she is oriented 3, she denies any shortness of breath, she is on supplemental oxygen, currently on 2 L, with a pulse ox of 96%, she is currently in sinus mechanism, with a rate of 61 BPM. She has had episodes of A. fib RVR intermittently last night as well apparently. Cardiology is following. Blood pressure is 119/76, lung sounds are diminished, no crackles. Echocardiogram showed moderate concentric left ventricular hypertrophy, and severely impaired LV function with an EF of 20-25%, aneurysmal basal inferior LV wall motion, at [place] basal anteroseptal LV wall, hypokinesis of the inferior, apical inferior, apical septal saunders. Mild tricuspid regurg, [id number] pulmonary hypertension with right-sided pressures of 45.2 mmHg. Patient is status post emergent cardiac catheterization with PCI and stenting of a totally occluded LAD. Patient also had a chronically occluded RCA. LVEDP during the h eart catheterization was 32 mmHg. Currently not on any vasopressors. Today's labs have been reviewed, showing white blood cell count of 13.1, hemoglobin is 14.2, sodium is 136, the rest of electrolytes were within normal limits, B1 is 28 creatinine is 1.18. Patient's troponins topped out at 133 with a second troponin, and came down to 108 with a troponin yesterday. Patient has palpable peripheral pulses, skin is warm and dry, she denies any shortness of breath, breathing seems to be comfortable. Objective - Vital Signs Vital signs: Vital Signs Temp 97.9 F 04/01/20 12:00 Pulse 61 04/01/20 12:00 Resp 35 H 04/01/20 12:00 BP 119/76 04/01/20 12:00 Pulse Ox 96 04/01/20 12:00 Intake & Output 03/31/20 04/01/20 04/01/20 18:59 06:59 18:59 Intake Total 860 45.182 Output Total 685 559 126 Balance 175 -513.818 -126 Weight 85.2 kg 84.2 kg Intake: IV 20 .9@ 20 20 Intake, IV Titration 45.182 Amount Esmolol in Sodium 45.182 Chloride Pmx 2.5 gm In Saline 1 250ml.bag @ 25 MCG/KG/MIN 12.78 mls/hr IV .[id number] [facility] Rx#: [id number] Oral 840 Output: Urine 685 559 126 Other: Voiding Method Indwelling Catheter Indwelling Catheter Indwelling Catheter - Exam GENERAL EXAM: Alert, very pleasant, 79-year-old white female, currently on 2 L oxygen with pulse ox of 96%, patient has chest pain connected to life pack as the patient had 4 episodes of sustained VT last night requiring synchronized cardioversion , currently in sinus mechanism with a rate of 61 BPM comfortable in no apparent distress. HEAD: Normocephalic/atraumatic. EYES: Normal reaction of pupils, equal size. Conjunctiva pink, sclera white. NOSE: Clear with pink turbinates. THROAT: No erythema or exudates. NECK: No masses, no JVD, no thyroid enlargement, no adenopathy. CHEST: No chest wall deformity. Symmetrical expansion. LUNGS: Equal air entry with no crackles, wheeze, rhonchi or dullness. CVS: Regular rate and rhythm, normal S1 and S2, no gallops, no murmurs, no rubs ABDOMEN: Soft, nontender. No hepatosplenomegaly, normal bowel sounds, no guarding or rigidity. EXTREMITIES: No clubbing, no edema, no cyanosis, 2+ pulses and upper and lower extremities. MUSCULOSKELETAL: Muscle strength and tone normal. SPINE: No scoliosis or deformity SKIN: No rashes CENTRAL NERVOUS SYSTEM: Alert and oriented -3. No focal deficits, tone is normal in all 4 extremities. PSYCHIATRIC: Alert and oriented -3. Appropriate affect. Intact judgment and insight. - Labs CBC & Chem 7: 04/01/20 04:45 04/01/20 04:45 Labs: Abnormal Lab Results - Last 24 Hours (Table) 03/31/20 03/31/20 03/31/20 Range/Units 04:24 16:28 16:35 WBC (3.8-10.6) k/uL Neutrophils # (1.3-7.7) k/uL Lymphocytes # (1.0-4.8) k/uL Monocytes # (0-1.0) k/uL Sodium (137-145) mmol/L BUN (7-17) mg/dL Creatinine (0.52-1.04) mg/dL Glucose (74-99) mg/dL POC Glucose (mg/dL) 157 H (75-99) mg/dL Hemoglobin A1c 7.9 H (4.0-6.0) % Magnesium (1.6-2.3) mg/dL Troponin I 108.000 H* (0.000-0.034) ng/mL 03/31/20 03/31/20 04/01/20 Range/Units 20:09 20:15 04:45 WBC 13.1 H (3.8-10.6) k/uL Neutrophils # 10.5 H (1.3-7.7) k/uL Lymphocytes # 0.8 L (1.0-4.8) k/uL Monocytes # 1.5 H (0-1.0) k/uL Sodium (137-145) mmol/L BUN (7-17) mg/dL Creatinine (0.52-1.04) mg/dL Glucose (74-99) mg/dL POC Glucose (mg/dL) 244 H (75-99) mg/dL Hemoglobin A1c (4.0-6.0) % Magnesium 1.5 L (1.6-2.3) mg/dL Troponin I (0.000-0.034) ng/mL 04/01/20 04/01/20 04/01/20 Range/Units 04:45 06:47 12:08 WBC (3.8-10.6) k/uL Neutrophils # (1.3-7.7) k/uL Lymphocytes # (1.0-4.8) k/uL Monocytes # (0-1.0) k/uL Sodium 136 L (137-145) mmol/L BUN 28 H (7-17) mg/dL Creatinine 1.18 H (0.52-1.04) mg/dL Glucose 276 H (74-99) mg/dL POC Glucose (mg/dL) 244 H 223 H (75-99) mg/dL Hemoglobin A1c (4.0-6.0) % Magnesium (1.6-2.3) mg/dL Troponin I (0.000-0.034) ng/mL Assessment and Plan Plan: Assessment: #1. Acute non-ST elevated myocardial infarction and cardiogenic shock. Patient had emergent cardiac catheterization on 03/30/2020 PCI stenting of the LAD, blood pressure had since improved, currently not on any vasopressors #2. Coronary artery disease, status post PCI and stenting of proximal LAD #3. Episodes of sustained ventricular tachycardia 4 on 04/01/2020 requiring synchronized cardioversion and runs of atrial fibrillation, currently back in sinus rhythm, remains on amiodarone infusion #4. Multivessel coronary artery disease #5. Acute systolic CHF #6. Ischemic cardiomyopathy with severely impaired LV function and EF of 20-25% #7. Type 2 diabetes mellitus #8. Benign essential hypertension #9. Hypercholesterolemia Plan: Continue to closely monitor in the intensive care unit for any recurrence of arrhythmias, remains on amiodarone drip, will continue to closely follow with cardiology, currently in sinus mechanism, denies any shortness of breath, denies any chest pain. Continues on Brilinta and aspirin, beta blockers, Lasix, Losartan. Hemodynamically patient is not requiring any vasopressors, peripheral pulses are palpable, extremities are warm, no altered mentation. Monitor urine output, monitor for any recurrence of arrhythmias, will defer to cardiology for management of cardiac medications, we'll continue to monitor in the intensive care unit I performed a history & physical examination of the patient and discussed their management with my nurse practitioner, Yelena Ramirez. I reviewed the nurse practitioner's note and agree with the documented findings and plan of care. Lung sounds are positive for diminished breath sounds. The findings and the impression was discussed with the patient. I attest to the documentation by the nurse practitioner. Time with Patient: Less than 30
--- NOTE | 2020-04-01 16:50 | P.PN ---
Subjective This is Kimmy Ham PA-C dictating a progress note on this patient The patient was interviewed and examined by me as well as by Dr. Aviles Case discussed with Dr. Aviles and he agrees with the plan of care HPI/interval history Patient is an 79-year-old female with a history significant for hypertension, diabetes, dyslipidemia who presented with a non ST elevation TX and cardiogenic shock requiring pressors. She underwent urgent catheterization showing 100% occlusion of the proximal LAD, 30% lesion of the mid circumflex, 100% occlusion RCA with [id number] collaterals. She subsequently underwent PCI of the proximal LAD. Overnight she went into atrial fibrillation and subsequently polymorphic ventricular tachycardia requiring multiple shocks. She was started on IV amiodarone as well as lidocaine drip and IV esmolol. This morning she is maintaining sinus mechanism and remains on the IV amiodarone. Patient seen and examined resting in the ICU. Denies any chest pain. No shortness of breath. No palpitations dizziness or syncope. EXAMINATION Patient is afebrile, pulse in the 70s, respirations in the 20s, low pressure 110/69, oxygen saturation 95% on 2 L nasal cannula Patient seen and examined resting in bed, in no acute distress Lungs are diminished at the bases with few scattered crackles Heart is regular, no audible murmurs Extremities warm no edema No elevated JVD REVIEW OF LABS, ECG WBC 13.1, hemoglobin 14.2, platelets 199, potassium 5.0, BUN 28, creatinine 1.18 Echocardiogram showed EF 20-25% IMPRESSION / ASSESSMENT: #1 acute non-ST elevation TX and cardiogenic shock status post PCI of the proxim al LAD #2 polymorphic ventricular tachycardia requiring multiple shocks #3 paroxysmal atrial fibrillation, currently in sinus rhythm #4 multivessel coronary artery disease #5 ischemic cardiomyopathy with EF 20-25% #6 diabetes #7 hypertension #8 dyslipidemia PLAN: Convert to oral amiodarone 400 mg twice a day tomorrow Start anticoagulation with eliquis 2.5 mg twice a day maximize beta blockers as tolerated Continue dual antiplatelet therapy Continue to monitor for further arrhythmias Further recommendations based on the clinical course this patient Objective - Vital Signs Vital signs: Vital Signs Temp 97.9 F 04/01/20 12:00 Pulse 72 04/01/20 16:00 Resp 35 H 04/01/20 16:00 BP 110/69 04/01/20 16:00 Pulse Ox 95 04/01/20 16:00 Intake & Output 03/31/20 04/01/20 04/01/20 18:59 06:59 18:59 Intake Total 860 45.182 250 Output Total 685 559 286 Balance 175 -513.818 -36 Weight 85.2 kg 84.2 kg Intake: IV 20 .9@ 20 20 Intake, IV Titration 45.182 Amount Esmolol in Sodium 45.182 Chloride Pmx 2.5 gm In Saline 1 250ml.bag @ 25 MCG/KG/MIN 12.78 mls/hr IV .[id number] [facility] Rx#: [id number] Oral 840 250 Output: Urine 685 559 286 Other: Voiding Method Indwelling Catheter Indwelling Catheter Indwelling Catheter - Labs CBC & Chem 7: 04/01/20 04:45 04/01/20 04:45 Labs: Abnormal Lab Results - Last 24 Hours (Table) 03/31/20 03/31/20 03/31/20 Range/Units 04:24 16:28 20:09 WBC (3.8-10.6) k/uL Neutrophils # (1.3-7.7) k/uL Lymphocytes # (1.0-4.8) k/uL Monocytes # (0-1.0) k/uL Sodium (137-145) mmol/L BUN (7-17) mg/dL Creatinine (0.52-1.04) mg/dL Glucose (74-99) mg/dL POC Glucose (mg/dL) (75-99) mg/dL Hemoglobin A1c 7.9 H (4.0-6.0) % Magnesium 1.5 L (1.6-2.3) mg/dL Troponin I 108.000 H* (0.000-0.034) ng/mL 03/31/20 04/01/20 04/01/20 Range/Units 20:15 04:45 04:45 WBC 13.1 H (3.8-10.6) k/uL Neutrophils # 10.5 H (1.3-7.7) k/uL Lymphocytes # 0.8 L (1.0-4.8) k/uL Monocytes # 1.5 H (0-1.0) k/uL Sodium 136 L (137-145) mmol/L BUN 28 H (7-17) mg/dL Creatinine 1.18 H (0.52-1.04) mg/dL Glucose 276 H (74-99) mg/dL POC Glucose (mg/dL) 244 H (75-99) mg/dL Hemoglobin A1c (4.0-6.0) % Magnesium (1.6-2.3) mg/dL Troponin I (0.000-0.034) ng/mL 04/01/20 04/01/20 Range/Units 06:47 12:08 WBC (3.8-10.6) k/uL Neutrophils # (1.3-7.7) k/uL Lymphocytes # (1.0-4.8) k/uL Monocytes # (0-1.0) k/uL Sodium (137-145) mmol/L BUN (7-17) mg/dL Creatinine (0.52-1.04) mg/dL Glucose (74-99) mg/dL POC Glucose (mg/dL) 244 H 223 H (75-99) mg/dL Hemoglobin A1c (4.0-6.0) % Magnesium (1.6-2.3) mg/dL Troponin I (0.000-0.034) ng/mL
[2020-04-01 16:53] LABS: Glucose,Whole Blood 224 mg/dL (75-99)
--- NOTE | 2020-04-01 18:18 | P.PN ---
Subjective The patient was seen at bedside and he remained to be on a ventilator and sedation. He is currently on Versed 2 mg an hour, propofol 30 mics per kilogram per minute and morphine 2 mg an hour. There is no seizure-like activity noted per ICU team. His leukocytosis is trending up. He is on IV Cardizem for the A. fib. Yesterday evening patient developed several episodes of ventricular tachycardia, code was called for her on patient received multiple electric shock, she was placed on amiodarone drip, later on on lidocaine drip and tramadol and draped which is was running this morning, today she is fully awake and oriented, no chest pain or dyspnea. She is in sinus rhythm. Hemodynamically stable WBCs is up to 13K, creatinine is slightly up to 1.18, glucose above 200. Eliquis was started, continue with amiodarone drip, she is also on aspirin and Brilinta continue with lidocaine patch for low back pain, cardiology and ICU team on the case CONSTITUTIONAL: No fever, no malaise, no fatigue. HEENT: No recent visual problems or hearing problems. Denied any sore throat. CARDIOVASCULAR: No orthopnea, PND, no palpitations, no syncope. PULMONARY: No shortness of breath, no cough, no hemoptysis. GASTROINTESTINAL: No diarrhea, no nausea, no vomiting, no abdominal pain. Normoactive bowel sounds. NEUROLOGICAL: No headaches, no weakness, no numbness. Active Medications Generic Name Dose Route Start Last Admin Trade Name Freq PRN Reason Stop Dose Admin Acetaminophen 500 mg 03/31/20 10:43 03/31/20 11:15 Tylenol Tab PO 500 mg Q8HR PRN Administration Fever and/ or Pain Al Hydroxide/Mg Hydroxide 30 ml 03/30/20 23:04 Maalox PO Q4HR PRN Heartburn Amiodarone HCl 400 mg 04/02/20 09:00 Cordarone PO BID DAVON Apixaban 2.5 mg 04/01/20 21:00 Eliquis PO BID DAVON Aspirin 81 mg 03/31/20 09:00 04/01/20 09:30 Aspirin PO 81 mg DAILY DAVON Administration Atorvastatin Calcium 80 mg 03/31/20 21:00 03/31/20 22:59 Lipitor PO 80 mg HS DAVON Administration Atropine Sulfate 0.5 mg 03/30/20 23:04 Atropine IV ONCE PRN Symptomatic Bradycardia Famotidine 20 mg 04/02/20 09:00 Pepcid IV DAILY DAVON Furosemide 20 mg 03/31/20 16:00 04/01/20 16:29 Lasix PO 20 mg BID@0900,1600 DAVON Administration Amiodarone HCl 300 mg/ 250 mls @ 25 mls/hr 04/01/20 14:30 04/01/20 15:57 Dextrose/Water IV 04/02/20 08:29 0.5 mg/min .Q10H DAVON 25 mls/hr Administration Protocol 0.5 MG/MIN Insulin Aspart 0 unit 03/31/20 12:30 04/01/20 16:57 Novolog SQ 3 unit ACHS DAVON Administration Protocol Lidocaine 1 patch 03/31/20 19:15 04/01/20 09:31 Lidoderm TOPICAL 1 patch DAILY DAVON Administration Losartan Potassium 25 mg 03/31/20 10:45 04/01/20 09:31 Cozaar PO 25 mg DAILY DAVON Administration Metoprolol Succinate 50 mg 04/01/20 09:00 04/01/20 09:31 Toprol Xl PO 50 mg DAILY DAVON Administration Miscellaneous Information 1 each 03/30/20 23:04 Rx Info: Iv Contrast Was Given MISCELLANE 04/01/20 23:04 DAILY PRN Per Protocol Naloxone HCl 0.2 mg 03/30/20 21:33 Narcan IV Q2M PRN Opioid Reversal Nitroglycerin 0.4 mg 03/30/20 23:04 Nitrostat SUBLINGUAL Q5M PRN Chest Pain Ticagrelor 90 mg 03/31/20 09:00 04/01/20 09:32 Brilinta PO 90 mg BID DAVON Administration Objective - Vital Signs Vital signs: Vital Signs Temp 97.9 F 04/01/20 12:00 Pulse 76 04/01/20 17:00 Resp 24 04/01/20 17:00 BP 124/78 04/01/20 17:00 Pulse Ox 94 L 04/01/20 17:00 Intake & Output 03/31/20 04/01/20 04/01/20 18:59 06:59 18:59 Intake Total 860 45.182 250 Output Total 685 559 371 Balance 175 -513.818 -121 Weight 85.2 kg 84.2 kg Intake: IV 20 .9@ 20 20 Intake, IV Titration 45.182 Amount Esmolol in Sodium 45.182 Chloride Pmx 2.5 gm In Saline 1 250ml.bag @ 25 MCG/KG/MIN 12.78 mls/hr IV .[id number] [facility] Rx#: [id number] Oral 840 250 Output: Urine 685 559 371 Other: Voiding Method Indwelling Catheter Indwelling Catheter Indwelling Catheter - Exam GENERAL: The patient is alert and oriented x3, not in any acute distress. Well developed, well nourished. HEENT: Pupils are round and equally reacting to light. EOMI. No scleral icterus. No conjunctival pallor. Normocephalic, atraumatic. No pharyngeal erythema. No thyromegaly. CARDIOVASCULAR: S1 and S2 present. No murmurs, rubs, or gallops. PULMONARY: Chest is clear to auscultation, no wheezing or crackles. ABDOMEN: Soft, nontender, nondistended, normoactive bowel sounds. No palpable organomegaly. MUSCULOSKELETAL: No joint swelling or deformity. EXTREMITIES: No cyanosis, clubbing, or pedal edema. NEUROLOGICAL: Gross neurological examination did not reveal any focal deficits. SKIN: No rashes. no petechiae. - Labs CBC & Chem 7: 04/01/20 04:45 04/01/20 04:45 Labs: Abnormal Lab Results - Last 24 Hours (Table) 03/31/20 03/31/20 03/31/20 Range/Units 04:24 16:28 20:09 WBC (3.8-10.6) k/uL Neutrophils # (1.3-7.7) k/uL Lymphocytes # (1.0-4.8) k/uL Monocytes # (0-1.0) k/uL Sodium (137-145) mmol/L BUN (7-17) mg/dL Creatinine (0.52-1.04) mg/dL Glucose (74-99) mg/dL POC Glucose (mg/dL) (75-99) mg/dL Hemoglobin A1c 7.9 H (4.0-6.0) % Magnesium 1.5 L (1.6-2.3) mg/dL Troponin I 108.000 H* (0.000-0.034) ng/mL 09/07/20 09/08/20 09/08/20 Range/Units 20:15 04:45 04:45 WBC 13.1 H (3.8-10.6) k/uL Neutrophils # 10.5 H (1.3-7.7) k/uL Lymphocytes # 0.8 L (1.0-4.8) k/uL Monocytes # 1.5 H (0-1.0) k/uL Sodium 136 L (137-145) mmol/L BUN 28 H (7-17) mg/dL Creatinine 1.18 H (0.52-1.04) mg/dL Glucose 276 H (74-99) mg/dL POC Glucose (mg/dL) 244 H (75-99) mg/dL Hemoglobin A1c (4.0-6.0) % Magnesium (1.6-2.3) mg/dL Troponin I (0.000-0.034) ng/mL 04/01/20 04/01/20 04/01/20 Range/Units 06:47 12:08 16:51 WBC (3.8-10.6) k/uL Neutrophils # (1.3-7.7) k/uL Lymphocytes # (1.0-4.8) k/uL Monocytes # (0-1.0) k/uL Sodium (137-145) mmol/L BUN (7-17) mg/dL Creatinine (0.52-1.04) mg/dL Glucose (74-99) mg/dL POC Glucose (mg/dL) 244 H 223 H 224 H (75-99) mg/dL Hemoglobin A1c (4.0-6.0) % Magnesium (1.6-2.3) mg/dL Troponin I (0.000-0.034) ng/mL Assessment and Plan Assessment: Acute non-ST elevation myocardial infarction, status post cardiac cath showed triple vessel coronary artery disease and status post stent placement of the LAD Cardiogenic shock status post pressors, improved Polymorphic ventricular tachycardia, various episodes needing multiple shock Leukocytosis, mostly reactive. Diabetes mellitus with Hyperglycemia, check hemoglobin A1c Plan: This is a pleasant 79 years old female who presents with cardiogenic shock and non-STEMI, she status post stent placement. Continue with aspirin and Brilinta and check echocardiogram. Follow-up recommendation by pulmonary/critical care team. No need for pressors currently. Continue with insulin sliding scale. Metformin on hold Labs and medication were reviewed.. Continue same treatment. Continue with symptomatic treatment. Resume home medication. Monitor lytes and vitals. DVT and GI prophylaxis. Further recommendations of the clinical course of the patient DVT prophylaxis: Subcutaneous heparin GI Prophylaxis: Pepcid Prognosis is guarded
[2020-04-01] MEDS ORDERED: METOPROLOL TARTRATE 5 MG/5 ML VIAL IVP ONE (18:28)
[2020-04-01] MEDS ORDERED: METOPROLOL TARTRATE 5 MG/5 ML VIAL IVP SCH (18:30)
[2020-04-01] MEDS: DEXTROSE 5% IN WATER 100 ML with AMIODARONE 150 MG IV ONE (18:59)
[2020-04-01 20:45] LABS: Glucose,Whole Blood 268 mg/dL (75-99)
[2020-04-01 21:15] LABS: Potassium 4.5 mmol/L (3.5-5.1)
[2020-04-01] MEDS: ATORVASTATIN 80 MG TAB PO SCH (21:27)
[2020-04-01] MEDS: APIXABAN 2.5 MG TABLET PO SCH (21:27)
[2020-04-02] MEDS: AMIODARONE 300 MG in DEXTROSE 5% IN WATER 250 ML IV SCH ×8 (00:22→22:33)
[2020-04-02] MEDS ORDERED: DEXTROSE 5% IN WATER 100 ML with AMIODARONE 150 MG IV ONE (03:25)
[2020-04-02] MEDS: DEXTROSE 5% IN WATER 100 ML with AMIODARONE 150 MG IV ONE ×2 (03:38→03:47)
[2020-04-02] MEDS: AMIODARONE 360 MG in DEXTROSE 5% IN WATER 200 ML IV ONE ×6 (03:58→12:17)
[2020-04-02 05:34] LABS: Basophils % (A) 0 %; Eosinophils % (A) 0 %; HCT 45.4 % (34.0-46.0); HGB 14.2 gm/dL (11.4-16.0); Lymphocytes % (A) 7 %; MCH 27.1 pg (25.0-35.0); MCHC 31.2 g/dL (31.0-37.0); Mean Platelet Volume 8.9; Monocytes # (A) 1.4 k/uL (0-1.0); Monocytes % (A) 10 %; Neutrophils % (A) 81 %; Platelet Count 214 k/uL (150-450); RBC 5.22 m/uL (3.80-5.40); RDW 13.9 % (11.5-15.5); WBC 13.6 k/uL (3.8-10.6)
[2020-04-02 05:44] LABS: Magnesium 2.1 mg/dL (1.6-2.3); Potassium 4.7 mmol/L (3.5-5.1)
[2020-04-02 06:51] LABS: Glucose,Whole Blood 226 mg/dL (75-99)
[2020-04-02] MEDS: ACETAMINOPHEN TAB 500 MG TAB PO PRN (07:15)
[2020-04-02] MEDS: INSULIN ASPART (NovoLOG) 100 UNIT/ML VIAL SQ SCH ×4 (07:16→20:42)
[2020-04-02] MEDS ORDERED: AMIODARONE 360 MG in DEXTROSE 5% IN WATER 200 ML IV SCH ×2 (07:45)
[2020-04-02] MEDS ORDERED: LIDOCAINE-D5W PMX 2G/250ML 2,000 MG in DEXTROSE/WATER 1 250ML.BAG IV SCH (08:30)
[2020-04-02] MEDS ORDERED: FUROSEMIDE 10 MG/ML 4 ML VIAL IV STA (08:48)
[2020-04-02] MEDS: TICAGRELOR 90 MG TAB PO SCH ×2 (08:59→20:35)
[2020-04-02] MEDS: ASPIRIN 81 MG PO SCH (08:59)
[2020-04-02] MEDS: LIDOCAINE 5% PATCH TOPICAL SCH (09:00)
[2020-04-02] MEDS ORDERED: FUROSEMIDE 40 MG TAB PO SCH (09:00)
[2020-04-02] MEDS: FAMOTIDINE 20 MG/2 ML VIAL IV SCH (09:00)
[2020-04-02] MEDS ORDERED: AMIODARONE 200 MG TAB PO SCH (09:00)
[2020-04-02] MEDS: LOSARTAN 25 MG TAB PO SCH (09:07)
[2020-04-02] MEDS: APIXABAN 2.5 MG TABLET PO SCH (09:07)
[2020-04-02] MEDS: METOPROLOL SUCCINATE (ER) 50 MG TAB.ER.24H PO SCH (09:07)
--- NOTE | 2020-04-02 09:37 | P.PN ---
Subjective Progress Note Date: 04/02/20 Principal diagnosis: Acute non-ST elevated myocardial infarction, A. fib with RVR This is an 79-year-old female with history of hypertension, diabetes, hypercholesterolemia, no previous documented history of underlying coronary artery disease. Patient was brought into the ER with sudden episode of diaphoresis, patient suddenly broke into sweats. On her way to the hospital, alejandra schaefer had some vague left-sided chest pain and substernal pain. She felt extremely tired and fatigued. And upon arrival to the ER, she was noted to be hypotensive, bradycardic, and she was quite pale. EKG questioned ST elevation myocardial infarction. And she continued to have chest pain while in the ER. Seen by cardiology on consultation, and she underwent cardiac catheterization were and she was found to have significant LAD lesion underwent stenting by Dr. Garay. Postoperatively patient felt much better, sent to the intensive care unit, she is asymptomatic at this point, denies any chest pain, denies any shortness of breath, and she remained hemodynamically stable. Denies any s hortness of breath. Chest x-ray in the ICU showed mild cardiomegaly and small left effusion with atelectasis. Clinically however the patient has no active pulmonary symptoms she is on 5 L nasal cannula. Tapered down to 3 L and her O2 saturation remained 97%. On 04/01/2020 patient seen in follow-up in the intensive care unit, apparently patient had 4 episodes of sustained V. tach last night requiring synchronized cardioversion. Patient was started on amiodarone infusion on which she remains currently running at 0.5 mg/m, no other IVs infusing, she is awake and alert, she is oriented 3, she denies any shortness of breath, she is on supplemental oxygen, currently on 2 L, with a pulse ox of 96%, she is currently in sinus mechanism, with a rate of 61 BPM. She has had episodes of A. fib RVR intermittently last night as well apparently. Cardiology is following. Blood pressure is 119/76, lung sounds are diminished, no crackles. Echocardiogram showed moderate concentric left ventricular hypertrophy, and severely impaired LV function with an EF of 20-25%, aneurysmal basal inferior LV wall motion, at [place] basal anteroseptal LV wall, hypokinesis of the inferior, apical inferior, apical septal saunders. Mild tricuspid regurg, [id number] pulmonary hypertension with right-sided pressures of 45.2 mmHg. Patient is status post emergent cardiac catheterization with PCI and stenting of a totally occluded LAD. Patient also had a chronically occluded RCA. LVEDP during the h eart catheterization was 32 mmHg. Currently not on any vasopressors. Today's labs have been reviewed, showing white blood cell count of 13.1, hemoglobin is 14.2, sodium is 136, the rest of electrolytes were within normal limits, B1 is 28 creatinine is 1.18. Patient's troponins topped out at 133 with a second troponin, and came down to 108 with a troponin yesterday. Patient has palpable peripheral pulses, skin is warm and dry, she denies any shortness of breath, breathing seems to be comfortable. On 04/02/2020 patient seen in follow-up in the intensive care unit. She had another episode of sustained ventricular tachycardia last night at around 1900 requiring synchronized cardioversion, apparently following cardioversion she was bradycardic requiring transcutaneous pacemaker support. This morning she is having frequent ectopic beats, multiple runs of PVCs, multifocal. She remains o n amiodarone drip at 1 mg/m, cardiology is rounding, and is planning on adding lidocaine drip at 1 mg/m. Blood pressure is 93/66, respiratory rate in the upper 20s to low 30s. And patient feels more short of breath today, she is on supplemental oxygen currently on 4 L, with a pulse ox of 94%. She is afebrile, lung sounds reveal coarse inspiratory crackles at bilateral N midlungs bilaterally. Denies any chest pain. She remains connected to the life pack via chest patces. She was started on Eliquis last night at 2-1/2 mg twice a day, she remains on the intensive dose of Lipitor, 80 mg, baby aspirin and [place], oral Lasix was started. Has been slight worsening in her renal function, with B1 up to 41, creatinine is 1.33, up from 1.18 on yesterday's labs, sodium is 132 contraceptive electrodes were within normal limits, white blood cell count is 13.6, hemoglobin is 14.2. Objective - Vital Signs Vital signs: Vital Signs Temp 96.1 F L 04/02/20 08:00 Pulse 121 H 04/02/20 09:00 Resp 35 H 04/02/20 09:00 BP 93/66 04/02/20 09:00 Pulse Ox 94 L 04/02/20 09:00 Intake & Output 04/01/20 04/02/20 04/02/20 18:59 06:59 18:59 Intake Total 250 178.332 Output Total 421 267 55 Balance -171 -267 123.332 Weight 84.3 kg Intake: Intake, IV Titration 178.332 Amount Amiodarone 360 mg In 178.332 Dextrose 5% in Water 200 ml @ 1 MG/MIN 33.333 mls/ hr IV .Q6H ONE Rx#: [id number] Oral 250 Output: Urine 421 267 55 Other: Voiding Method Indwelling Catheter Indwelling Catheter - Exam GENERAL EXAM: Alert, very pleasant, 79-year-old white female, currently on 4 L oxygen with pulse ox of 94%, patient has chest pain connected to life pack as the patient had 4 episodes of sustained VT last night requiring synchronized cardioversion , currently in sinus mechanism with a rate of 61 BPM comfortable in no apparent distress. HEAD: Normocephalic/atraumatic. EYES: Normal reaction of pupils, equal size. Conjunctiva pink, sclera white. NOSE: Clear with pink turbinates. THROAT: No erythema or exudates. NECK: No masses, no JVD, no thyroid enlargement, no adenopathy. CHEST: No chest wall deformity. Symmetrical expansion. LUNGS: Equal air entry with bibasilar crackles CVS: Irregular rate and rhythm, normal S1 and S2, no gallops, no murmurs, no rubs ABDOMEN: Soft, nontender. No hepatosplenomegaly, normal bowel sounds, no guarding or rigidity. EXTREMITIES: No clubbing, mild ankle edema, no cyanosis, 2+ pulses and upper and lower extremities. MUSCULOSKELETAL: Muscle strength and tone normal. SPINE: No scoliosis or deformity SKIN: No rashes CENTRAL NERVOUS SYSTEM: Alert and oriented -3. No focal deficits, tone is normal in all 4 extremities. PSYCHIATRIC: Alert and oriented -3. Appropriate affect. Intact judgment and insight. - Labs CBC & Chem 7: 04/02/20 05:10 04/02/20 05:10 Labs: Abnormal Lab Results - Last 24 Hours (Table) 04/01/20 04/01/20 04/01/20 Range/Units 12:08 16:51 20:43 WBC (3.8-10.6) k/uL Neutrophils # (1.3-7.7) k/uL Monocytes # (0-1.0) k/uL Sodium (137-145) mmol/L BUN (7-17) mg/dL Creatinine (0.52-1.04) mg/dL Glucose (74-99) mg/dL POC Glucose (mg/dL) 223 H 224 H 268 H (75-99) mg/dL 04/02/20 04/02/20 04/02/20 Range/Units 05:10 05:10 06:50 WBC 13.6 H (3.8-10.6) k/uL Neutrophils # 11.0 H (1.3-7.7) k/uL Monocytes # 1.4 H (0-1.0) k/uL Sodium 132 L (137-145) mmol/L BUN 41 H (7-17) mg/dL Creatinine 1.33 H (0.52-1.04) mg/dL Glucose 255 H (74-99) mg/dL POC Glucose (mg/dL) 226 H (75-99) mg/dL Assessment and Plan Plan: Assessment: #1. Acute non-ST elevated myocardial infarction and cardiogenic shock. Patient had emergent cardiac catheterization on 03/30/2020 PCI stenting of the LAD, blood pressure had since improved, currently not on any vasopressors #2. Coronary artery disease, status post PCI and stenting of proximal LAD on 03/30/2020 #3. Episodes of sustained ventricular tachycardia 4 on 04/01/2020 requiring synchronized cardioversion and runs of atrial fibrillation, currently back in sinus rhythm with frequent runs of VT, remains on amiodarone, and lidocaine will be started #4. Multivessel coronary artery disease #5. Acute systolic CHF #6. Ischemic cardiomyopathy with severely impaired LV function and EF of 20-25% #7. Type 2 diabetes mellitus #8. Benign essential hypertension #9. Hypercholesterolemia Plan: Agree with Brian, we'll obtain chest x-ray today, she is more short of breath, on increased FiO2, and still having frequent runs of VT, cardiology is planning on doing a repeat heart catheterization today. Lidocaine will be added. Continue to closely monitor urine output, hemodynamics. Prognosis is guarded, patient will be closely monitored in the intensive care unit following the procedure. She has been started on Eliquis for anticoagulation, she remains on amiodarone drip. Daily labs, electrolytes and renal profile. Repeat chest x- ray in the morning I performed a history & physical examination of the patient and discussed their management with my nurse practitioner, Yelena Ramirez. I reviewed the nurse practitioner's note and agree with the documented findings and plan of care. Lung sounds are positive for diminished breath sounds. The findings and the impression was discussed with the patient. I attest to the documentation by the nurse practitioner. Time with Patient: Less than 30
[2020-04-02] MEDS ORDERED: FUROSEMIDE 10 MG/ML 10 ML VIAL IV STA (10:04)
--- NOTE | 2020-04-02 10:21 | XR ---
EXAMINATION TYPE: XR chest 1V portable DATE OF EXAM: 04/02/2020 Comparison: 03/31/2020 Clinical History: 79-year-old female shortness of breath. Findings: Rightward patient rotation alters the normal cardiomediastinal contours. Heart mildly enlarged. Diffu se interstitial prominence. Some subtle Dot B lines are suggested. Left base is underpenetrated an d not well assessed. Impression: Cardiomegaly with interstitial prominence, similar to slightly increased. Correlate for CHF with mild pulmonary vascular congestion. Left base underpenetrated and not well assessed, possible small effus ion with adjacent atelectasis and/or consolidation. Consider lateral view to assess for underlying ef fusion.
[2020-04-02] MEDS ORDERED: AMIODARONE 300 MG in DEXTROSE 5% IN WATER 250 ML IV SCH ×2 (10:45)
[2020-04-02 12:02] LABS: Glucose,Whole Blood 282 mg/dL (75-99)
--- NOTE | 2020-04-02 16:27 | P.PN ---
Subjective This is Kimmy Ham PA-C dictating a progress note on this patient The patient was interviewed and examined by me as well as by Dr. Aviles Case discussed with Dr. Aviles and he agrees with the plan of care HPI/interval history Patient is an 79-year-old female with a history significant for hypertension, diabetes, dyslipidemia who presented with a non ST elevation IN and cardiogenic shock requiring pressors. She underwent urgent catheterization showing 100% occlusion of the proximal LAD, 30% lesion of the mid circumflex, 100% occlusion RCA with [id number]-vvoci collaterals. She subsequently underwent PCI of the proximal LAD. After the procedure she went into atrial fibrillation and polymorphic ventricular tachycardia requiring multiple shocks. She was treated with IV amiodarone, IV lidocaine and IV esmolol. Yesterday she was maintaining sinus rhythm on the IV amiodarone and the plan was to convert her to oral amiodarone. Overnight she again went into atrial fibrillation and had another episode of ventricular tachycardia requiring another shock. She is still on IV amiodarone. She has been started on IV lidocaine drip. Patient is currently in sinus bradycardia with rates in the 40s. Patient seen and examined resting in the ICU. States she feels very weak and is short of breath. No chest pain. EXAMINATION Patient is afebrile, pulse in the 40s, respirations 35, blood pressure in the 90s over 50s, oxygen saturation 95% on 4 L nasal cannula Patient seen and examined in the ICU, drowsy but arousable, tachypnic, in mild distress Lungs with bibasilar crackles Heart is regular, no audible murmurs Extremities warm, no edema REVIEW OF LABS, ECG WBC 13.6, hemoglobin 14.2, platelets 214, sodium 132, potassium 4.7, BUN 41, creatinine 1.33 IMPRESSION / ASSESSMENT: #1 acute non-ST elevation IN and cardiogenic shock status post PCI of the proximal LAD #2 recurrent ventricular tachycardia requiring multiple shocks #3 paroxysmal atrial fibrillation, currently in sinus rhythm #4 multivessel coronary artery disease #5 ischemic cardiomyopathy with EF 20-25% #6 diabetes #7 hypertension #8 dyslipidemia #9 acute systolic congestive heart failure PLAN: Continue IV amiodarone Reduce the IV lidocaine 0.5 mg/m Reduce metoprolol to 25 mg daily Patient given IV Lasix 80 mg Further recommendations based on the clinical course Objective - Vital Signs Vital signs: Vital Signs Temp 96.1 F L 04/02/20 12:00 Pulse 46 L 04/02/20 15:00 Resp 35 H 04/02/20 15:00 BP 88/53 04/02/20 15:00 Pulse Ox 95 04/02/20 15:00 Intake & Output 04/01/20 04/02/20 04/02/20 18:59 06:59 18:59 Intake Total 250 253.957 Output Total 421 267 130 Balance -171 -267 123.957 Weight 84.3 kg Intake: Intake, IV Titration 203.957 Amount Amiodarone 360 mg In 178.332 Dextrose 5% in Water 200 ml @ 1 MG/MIN 33.333 mls/ hr IV .Q6H ONE Rx#: [id number] Lidocaine-D5w Pmx 2G/ 25.625 250Ml 2,000 mg In Dextrose/Water 1 250ml. bag @ 1 MG/MIN 7.5 mls/hr IV .Q24H DAVON Rx#: [id number] Oral 250 50 Output: Urine 421 267 130 Other: Voiding Method Indwelling Catheter Indwelling Catheter Indwelling Catheter - Labs CBC & Chem 7: 04/02/20 05:10 04/02/20 05:10 Labs: Abnormal Lab Results - Last 24 Hours (Table) 04/01/20 04/01/20 04/02/20 Range/Units 16:51 20:43 05:10 WBC 13.6 H (3.8-10.6) k/uL Neutrophils # 11.0 H (1.3-7.7) k/uL Monocytes # 1.4 H (0-1.0) k/uL Sodium (137-145) mmol/L BUN (7-17) mg/dL Creatinine (0.52-1.04) mg/dL Glucose (74-99) mg/dL POC Glucose (mg/dL) 224 H 268 H (75-99) mg/dL 04/02/20 04/02/20 04/02/20 Range/Units 05:10 06:50 12:00 WBC (3.8-10.6) k/uL Neutrophils # (1.3-7.7) k/uL Monocytes # (0-1.0) k/uL Sodium 132 L (137-145) mmol/L BUN 41 H (7-17) mg/dL Creatinine 1.33 H (0.52-1.04) mg/dL Glucose 255 H (74-99) mg/dL POC Glucose (mg/dL) 226 H 282 H (75-99) mg/dL
[2020-04-02 17:24] LABS: Glucose,Whole Blood 222 mg/dL (75-99)
--- NOTE | 2020-04-02 18:32 | P.PN ---
Subjective The patient was seen at bedside and he remained to be on a ventilator and sedation. He is currently on Versed 2 mg an hour, propofol 30 mics per kilogram per minute and morphine 2 mg an hour. There is no seizure-like activity noted per ICU team. His leukocytosis is trending up. He is on IV Cardizem for the A. fib. 04/01/20 Yesterday evening patient developed several episodes of ventricular tachycardia, code was called for her on patient received multiple electric shock, she was placed on amiodarone drip, later on on lidocaine drip and tramadol and draped which is was running this morning, today she is fully awake and oriented, no chest pain or dyspnea. She is in sinus rhythm. Hemodynamically stable WBCs is up to 13K, creatinine is slightly up to 1.18, glucose above 200. Eliquis was started, continue with amiodarone drip, she is also on aspirin and Brilinta continue with lidocaine patch for low back pain, cardiology and ICU team on the case 04/02/20 Patient developed ventricular tachycardia yesterday evening about 7:30 p.m. and she received defibrillator shock later on her rhythm was wished to arterial fibrillation Cardiology on the case and currently she is on both amiodarone drip and lidocaine drip. Cardiology is planning to do another cardiac cath Lasix is given for fluid overload and on exam she has basal crepitation. Cr eatinine is slightly up to 1.3 and we will keep monitoring closely. Also she is bradycardic and tachypneic, cardiology and pulmonary/critical care team on the case CONSTITUTIONAL: No fever, no malaise, no fatigue. HEENT: No recent visual problems or hearing problems. Denied any sore throat. CARDIOVASCULAR: No orthopnea, PND, no palpitations, no syncope. PULMONARY: No shortness of breath, no cough, no hemoptysis. GASTROINTESTINAL: No diarrhea, no nausea, no vomiting, no abdominal pain. Norm oactive bowel sounds. NEUROLOGICAL: No headaches, no weakness, no numbness. Active Medications Generic Name Dose Route Start Last Admin Trade Name Freq PRN Reason Stop Dose Admin Acetaminophen 500 mg 03/31/20 10:43 04/02/20 07:15 Tylenol Tab PO 500 mg Q8HR PRN Administration Fever and/ or Pain Al Hydroxide/Mg Hydroxide 30 ml 03/30/20 23:04 Maalox PO Q4HR PRN Heartburn Aspirin 81 mg 03/31/20 09:00 04/02/20 08:59 Aspirin PO 81 mg DAILY DAVON Administration Atorvastatin Calcium 80 mg 03/31/20 21:00 04/01/20 21:27 Lipitor PO 80 mg HS DAVON Administration Atropine Sulfate 0.5 mg 03/30/20 23:04 Atropine IV ONCE PRN Symptomatic Bradycardia Famotidine 20 mg 04/02/20 09:00 04/02/20 09:00 Pepcid IV 20 mg DAILY DAVON Administration Lidocaine HCl/Dextrose 2,000 250 mls @ 7.5 mls/hr 04/02/20 08:30 04/02/20 12:16 mg/ IV Solution IV 0 mg/min .Q24H DAVON 0 mls/hr Infusion 1 MG/MIN Amiodarone HCl 300 mg/ 250 mls @ 25 mls/hr 04/02/20 13:00 04/02/20 12:41 Dextrose/Water IV 04/03/20 06:59 0.5 mg/min .Q10H DAVON 25 mls/hr Administration 0.5 MG/MIN Insulin Aspart 0 unit 03/31/20 12:30 04/02/20 17:23 Novolog SQ 3 unit ACHS DAVON Administration Protocol Lidocaine 1 patch 03/31/20 19:15 04/02/20 09:00 Lidoderm TOPICAL 1 patch DAILY DAVON Administration Losartan Potassium 25 mg 03/31/20 10:45 04/02/20 09:07 Cozaar PO 25 mg DAILY DAVON Administration Metoprolol Succinate 25 mg 04/03/20 09:00 Toprol Xl PO DAILY DAVON Naloxone HCl 0.2 mg 03/30/20 21:33 Narcan IV Q2M PRN Opioid Reversal Nitroglycerin 0.4 mg 03/30/20 23:04 Nitrostat SUBLINGUAL Q5M PRN Chest Pain Ticagrelor 90 mg 03/31/20 09:00 04/02/20 08:59 Brilinta PO 90 mg BID DAVON Administration Objective - Vital Signs Vital signs: Vital Signs Temp 96.1 F L 04/02/20 12:00 Pulse 48 L 04/02/20 18:00 Resp 33 H 04/02/20 18:00 BP 94/63 04/02/20 18:00 Pulse Ox 96 04/02/20 18:00 Intake & Output 04/01/20 04/02/20 04/02/20 18:59 06:59 18:59 Intake Total 250 253.957 Output Total 421 267 175 Balance -171 -267 78.957 Weight 84.3 kg Intake: Intake, IV Titration 203.957 Amount Amiodarone 360 mg In 178.332 Dextrose 5% in Water 200 ml @ 1 MG/MIN 33.333 mls/ hr IV .Q6H ONE Rx#: [id number] Lidocaine-D5w Pmx 2G/ 25.625 250Ml 2,000 mg In Dextrose/Water 1 250ml. bag @ 1 MG/MIN 7.5 mls/hr IV .Q24H DAVON Rx#: [id number] Oral 250 50 Output: Urine 421 267 175 Other: Voiding Method Indwelling Catheter Indwelling Catheter Indwelling Catheter - Exam GENERAL: The patient is alert and oriented x3, not in any acute distress. Well developed, well nourished. HEENT: Pupils are round and equally reacting to light. EOMI. No scleral icterus. No conjunctival pallor. Normocephalic, atraumatic. No pharyngeal erythema. No thyromegaly. CARDIOVASCULAR: S1 and S2 present. No murmurs, rubs, or gallops. PULMONARY: Chest is clear to auscultation, no wheezing or crackles. ABDOMEN: Soft, nontender, nondistended, normoactive bowel sounds. No palpable organomegaly. MUSCULOSKELETAL: No joint swelling or deformity. EXTREMITIES: No cyanosis, clubbing, or pedal edema. NEUROLOGICAL: Gross neurological examination did not reveal any focal deficits. SKIN: No rashes. no petechiae. - Labs CBC & Chem 7: 04/02/20 05:10 04/02/20 05:10 Labs: Abnormal Lab Results - Last 24 Hours (Table) 04/01/20 04/02/20 04/02/20 Range/Units 20:43 05:10 05:10 WBC 13.6 H (3.8-10.6) k/uL Neutrophils # 11.0 H (1.3-7.7) k/uL Monocytes # 1.4 H (0-1.0) k/uL Sodium 132 L (137-145) mmol/L BUN 41 H (7-17) mg/dL Creatinine 1.33 H (0.52-1.04) mg/dL Glucose 255 H (74-99) mg/dL POC Glucose (mg/dL) 268 H (75-99) mg/dL 04/02/20 04/02/20 04/02/20 Range/Units 06:50 12:00 17:19 WBC (3.8-10.6) k/uL Neutrophils # (1.3-7.7) k/uL Monocytes # (0-1.0) k/uL Sodium (137-145) mmol/L BUN (7-17) mg/dL Creatinine (0.52-1.04) mg/dL Glucose (74-99) mg/dL POC Glucose (mg/dL) 226 H 282 H 222 H (75-99) mg/dL Assessment and Plan Assessment: Acute non-ST elevation myocardial infarction, status post cardiac cath showed triple vessel coronary artery disease and status post stent placement of the LAD Cardiogenic shock status post pressors, improved Polymorphic ventricular tachycardia, various episodes needing multiple shock Atrial fibrillation Leukocytosis, mostly reactive. Diabetes mellitus with Hyperglycemia, check hemoglobin A1c Plan: This is a pleasant 79 years old female who presents with cardiogenic shock and non-STEMI, she status post stent placement. Continue with aspirin and Brilinta . Follow-up recommendation by pulmonary/critical care team. Continue with insulin sliding scale. Metformin on hold Cardiac catheter ui ux engineer Labs and medication were reviewed.. Continue same treatment. Continue with symptomatic treatment. Resume home medication. Monitor lytes and vitals. DVT and GI prophylaxis. Further recommendations of the clinical course of the patient DVT prophylaxis: Subcutaneous heparin GI Prophylaxis: Pepcid Prognosis is guarded
[2020-04-02] MEDS: MAGNESIUM SULFATE-D5W PMX 1 GM in DEXTROSE/WATER 1 100ML.BAG IVPB SCH ×2 (20:31→21:15)
[2020-04-02 20:32] LABS: Glucose,Whole Blood 202 mg/dL (75-99)
[2020-04-02] MEDS: ATORVASTATIN 80 MG TAB PO SCH (20:35)
[2020-04-02] MEDS: LIDOCAINE-D5W PMX 2G/250ML 2,000 MG in DEXTROSE/WATER 1 250ML.BAG IV SCH (22:49)
[2020-04-02 22:58] LABS: Glucose,Whole Blood 218 mg/dL (75-99)
[2020-04-03] MEDS: MEXILETINE 150 MG CAP PO SCH ×4 (00:04→23:57)
[2020-04-03] MEDS: SODIUM CHLORIDE 0.9% 250 ML IV SCH ×5 (05:00→07:34)
[2020-04-03 06:01] LABS: Albumin 3.1 g/dL (3.5-5.0); Calcium 8.4 mg/dL (8.4-10.2); Potassium 4.6 mmol/L (3.5-5.1); Total Bilirubin 1.2 mg/dL (0.2-1.3); Total Protein 5.5 g/dL (6.3-8.2)
[2020-04-03 06:03] LABS: HCT 42.6 % (34.0-46.0); HGB 13.3 gm/dL (11.4-16.0); MCH 27.2 pg (25.0-35.0); MCHC 31.2 g/dL (31.0-37.0); MCV 87.2 fL (80.0-100.0); Mean Platelet Volume 9.2; Platelet Count 231 k/uL (150-450); RBC 4.88 m/uL (3.80-5.40); RDW 13.7 % (11.5-15.5); WBC 13.8 k/uL (3.8-10.6)
[2020-04-03] MEDS ORDERED: AMIODARONE 360 MG in DEXTROSE 5% IN WATER 200 ML IV ONE ×4 (06:20)
[2020-04-03 06:53] LABS: Glucose,Whole Blood 231 mg/dL (75-99)
[2020-04-03] MEDS: INSULIN ASPART (NovoLOG) 100 UNIT/ML VIAL SQ SCH ×4 (07:09→20:04)
--- NOTE | 2020-04-03 07:30 | XR ---
EXAMINATION TYPE: XR chest 1V portable DATE OF EXAM: 04/03/2020 HISTORY: Shortness of breath. COMPARISON: 04/02/2020 TECHNIQUE: Single view of the chest is submitted. FINDINGS: Demonstrated are scattered senescent parenchymal change. There is apparent left perihilar and left basilar opacity felt to reflect infiltrate, atelectasis and /or effusion. Small right-sided effusion noted as well. The heart is stable. Hilar and mediastinal structures are within normal limits. Degenerative changes are seen of the dorsal spine. IMPRESSION: 1. There is apparent left perihilar and left basilar opacity felt to reflect infiltrate, atelectasis and/or effusion. Small right-sided effusion noted as well.
[2020-04-03] MEDS: SODIUM CHLORIDE 0.9% 1,000 ML IV SCH ×3 (08:01→12:59)
--- NOTE | 2020-04-03 08:23 | P.PN ---
Subjective Patient evaluated this morning Events of last night noted I will call and she had at least 2 episodes of sustained VT/VF requiring external defibrillation She's been experiencing recurrent episodes of sustained VT VF even 72 hours post coronary intervention despite IV amiodarone and IV lead Last night I started her on mexiletine by mouth In addition she has sinus bradycardia in the 40s Yesterday she was in heart failure with bilateral crackles and she is tachypneic Today she looks better although she does have a JVD. She is less short of kirsten ath and yesterday her lungs sound clear with very occasional crackles at the bases However, blood pressure is low and she required IV fluid challenges of 250 mL 2 Her last blood pressure was about 97 mmHg Minimal increase in urine output Her urine output has been steadily reducing since yesterday Her BUN is 53 and creatinine is 1.64 Sodium 130, potassium 4.6 AST 65 ALT 102 consistent with severe heart failure with low cardiac output/low- flow state, cardiorenal syndrome On examination her blood pressure ranges from 67 215 systolic Heart rates are persistently in the 40s during the day and in the 30s at night sinus bradycardia Frequent ventricular ectopy Recurrent ventricular flutter requiring defibrillation Mild JVD in the upright position Breath sounds are reduced bilaterally scattered crackles at the bases Abdomen is soft Extremities are warm skin is warm She is alert and oriented normal mentation Heart sounds are soft no murmurs no gallops no S3 gallop I had a detailed discussion with the daughter and explained her current issues including hypertension, low cardiac output, recurrent VT VF status post SD and coronary intervention History of did speak to Dr. Garay and we were considering coronary angiography but given her situation yesterday and the fact that she was quite tachypneic and she crackles in both lung [place] we decided to hold off on repeat coronary angiography The reason for considering coronary angiography was the fact that she was having recurrent ventricular arrhythmias but this is most likely a result of severe injury and infarction to the myocardium rather than acute stent closure The patient has absolutely no chest discomfort at all Today she looks a lot more comfortable Impression Acute myocardial infarction complicated by acute congestive heart failure and cardiogenic shock/with cardiorenal syndrome Abnormal LFTs consistent with cardiac shock Bradycardia heart rates in the 40s, intolerant of beta blockers Recurrent VT/VF despite IV amiodarone and IV lidocaine requiring defibrillation Right bundle-branch block, anterior wall infarct, acute Prognosis very guarded Suggest Oral mexiletine Continue IV amiodarone Hold beta blockers today She will receive 1 more bolus of normal saline of 250 mL Consideration for a dual-chamber ICD device tomorrow Anesthesia risks discussed with the daughter and the patient Continue Brilinta and aspirin Depending upon blood pressure response to give Cozaar daily Hold off on Lasix Objective - Vital Signs Vital signs: Vital Signs Temp 97 F L 04/03/20 04:00 Pulse 48 L 04/03/20 07:00 Resp 12 04/03/20 07:00 BP 112/86 04/03/20 07:00 Pulse Ox 97 04/03/20 07:00 Intake & Output 04/02/20 04/03/20 04/03/20 18:59 06:59 18:59 Intake Total 253.957 990.000 Output Total 175 347 15 Balance 78.957 643.000 -15 Weight 86.6 kg Intake: IV 450 Magnesium Sulfate-D5w Pmx 200 1 gm In Dextrose/Water 1 100ml.bag @ 100 mls/hr IVPB Q1H [facility] Rx#: [id number] Sodium Chloride 0.9% 250 250 ml @ 999 mls/hr IV .Q16M [facility] Rx#:[id number] Intake, IV Titration 203.957 300.000 Amount Amiodarone 300 mg In 300.000 Dextrose 5% in Water 250 ml @ 0.5 MG/MIN 25 mls/hr IV .Q10H [facility] Rx#: [id number] Amiodarone 360 mg In 178.332 Dextrose 5% in Water 200 ml @ 1 MG/MIN 33.333 mls/ hr IV .Q6H [facility] Rx#: [id number] Lidocaine-D5w Pmx 2G/ 25.625 250Ml 2,000 mg In Dextrose/Water 1 250ml. bag @ 1 MG/MIN 7.5 mls/hr IV .Q24H [facility] Rx#: [id number] Oral 50 240 Output: Urine 175 347 15 Other: Voiding Method Indwelling Catheter Indwelling Catheter - Labs CBC & Chem 7: 04/03/20 00:51 04/03/20 05:10 Labs: Abnormal Lab Results - Last 24 Hours (Table) 04/02/20 04/02/20 04/02/20 Range/Units 12:00 17:19 20:30 WBC (3.8-10.6) k/uL Sodium (137-145) mmol/L Carbon Dioxide (22-30) mmol/L BUN (7-17) mg/dL Creatinine (0.52-1.04) mg/dL Glucose (74-99) mg/dL POC Glucose (mg/dL) 282 H 222 H 202 H (75-99) mg/dL AST (14-36) U/L ALT (4-34) U/L Total Protein (6.3-8.2) g/dL Albumin (3.5-5.0) g/dL 04/02/20 04/03/20 04/03/20 Range/Units 22:55 00:51 05:10 WBC 13.8 H (3.8-10.6) k/uL Sodium 130 L (137-145) mmol/L Carbon Dioxide 21 L (22-30) mmol/L BUN 53 H (7-17) mg/dL Creatinine 1.64 H (0.52-1.04) mg/dL Glucose 213 H (74-99) mg/dL POC Glucose (mg/dL) 218 H (75-99) mg/dL AST 65 H (14-36) U/L ALT 102 H (4-34) U/L Total Protein 5.5 L (6.3-8.2) g/dL Albumin 3.1 L (3.5-5.0) g/dL 04/03/20 Range/Units 06:51 WBC (3.8-10.6) k/uL Sodium (137-145) mmol/L Carbon Dioxide (22-30) mmol/L BUN (7-17) mg/dL Creatinine (0.52-1.04) mg/dL Glucose (74-99) mg/dL POC Glucose (mg/dL) 231 H (75-99) mg/dL AST (14-36) U/L ALT (4-34) U/L Total Protein (6.3-8.2) g/dL Albumin (3.5-5.0) g/dL
[2020-04-03] MEDS: FAMOTIDINE 20 MG/2 ML VIAL IV SCH (08:46)
[2020-04-03] MEDS: ASPIRIN 81 MG PO SCH (08:47)
[2020-04-03] MEDS: LIDOCAINE 5% PATCH TOPICAL SCH (08:48)
[2020-04-03] MEDS: LOSARTAN 25 MG TAB PO SCH (08:51)
[2020-04-03] MEDS: TICAGRELOR 90 MG TAB PO SCH ×2 (08:51→20:02)
[2020-04-03] MEDS ORDERED: METOPROLOL SUCCINATE (ER) 25 MG TAB.ER.24H PO SCH (09:00)
[2020-04-03 10:40] LABS: Appearance,Urine Cloudy (Clear); Bacteria,Urine Few /hpf; Bilirubin,Urine Negative (Negative); Blood,Urine Large (Negative); Color,Urine Light Red; Glucose,Urine (UA) Negative (Negative); Hyaline Casts,Urine 23 /lpf (0-2); Ketones,Urine Negative (Negative); Leukocyte Esterase,Urine Large (Negative); Mucus,Urine Rare /hpf; Nitrite,Urine Negative (Negative); Protein,Urine 1+ (Negative); RBC,Urine >182 /hpf (0-5); Specific Gravity,Urine 1.018 (1.001-1.035); Squamous Epithelial Cell,Urine 1 /hpf (0-4); Urobilinogen,Urine <2.0 mg/dL (<2.0); WBC,Urine 58 /hpf (0-5)
--- NOTE | 2020-04-03 11:02 | P.NPCON ---
History of Present Illness - Reason for Consult acute renal failure - History of Present Illness Reason for consultation: Acute kidney injury History of present illness: Patient is a 79-year-old female seen in renal consultation for acute kidney injury. Patient presented to the hospital on 03/30/2020 with weakness and dizziness. She was noted to have an acute RI and underwent cardiac catheterization with a stent placement to the LAD. She was in cardiogenic shock and required Levophed which has now been discontinued. She's also been in A. fib with RVR and is also having runs of V. tach and V. fib intermittently. She has been defibrillated and cardioverted 8 times so far this admission. She sc heduled for an AICD placement tomorrow. She is currently maintained on amiodarone and lidocaine drip. She is off vasopressors. Echocardiogram revealed ejection fraction of 20-25% with mild to moderate pulmonary hypertension. She did receive 80 mg IV Lasix yesterday with no response and urine output. This morning she received 2 boluses of 250 mL normal saline again with no response in urine output. Her baseline creatinine is near 1 and is elevated at 1.64 today. She does admit to dyspnea. No vomiting or diarrhea. Oral intake is poor. Denies regular use of nonsteroidals. She does have history of diabetes mellitus. Her brother is on hemodialysis due to diabetic kidney disease. Vital signs are stable. General: The patient appeared well nourished and normally developed. HEENT: Head exam is unremarkable. Neck is without jugular venous distension. LUNGS: Breath sounds decreased. HEART: Bradycardic. bradycardic.ABDOMEN: Soft, nontender. EXTREMITITES: 1+ edema. Past Medical History Past Medical History: Unable to Obtain Additional Past Medical History / Comment(s): Patient is known to have history of hypertension, hypercholesterolemia, type 2 diabetes. Patient had previous cholecystectomy. History of Any Multi-Drug Resistant Organisms: None Reported Past Surgical History: Cholecystectomy, Orthopedic Surgery Additional Past Surgical History / Comment(s): knee Past Anesthesia/Blood Transfusion Reactions: No Reported Reaction Past Psychological History: No Psychological Hx Reported Smoking Status: Never smoker Past Alcohol Use History: None Reported Past Drug Use History: None Reported - Past Family History Mother Family Medical History: CVA/TIA Medications and Allergies Home Medications Medication Instructions Recorded Confirmed Type Aspirin [Adult Low Dose Aspirin EC] 81 mg PO DAILY 03/30/20 03/30/20 History Atorvastatin [Lipitor] 40 mg PO DAILY 03/30/20 03/30/20 History Glimepiride [Amaryl] 1 mg PO DAILY 03/30/20 03/30/20 History Losartan [Cozaar] 50 mg PO DAILY 03/30/20 03/30/20 History amLODIPine [Norvasc] 5 mg PO DAILY 03/30/20 03/30/20 History atenoloL [Atenolol] 25 mg PO DAILY 03/30/20 03/30/20 History metFORMIN HCL 1,000 mg PO BID 03/30/20 03/30/20 History Allergies Allergy/AdvReac Type Severity Reaction Status Date / Time No Known Allergies Allergy Verified 03/30/20 20:30 Physical Exam Vitals: Vital Signs Temp Pulse Resp BP Pulse Ox 04/03/20 10:00 40 L 28 H 91/57 94 L 04/03/20 09:30 38 L 24 119/73 98 04/03/20 09:00 45 L 31 H 109/60 95 04/03/20 08:30 42 L 26 H 110/71 96 04/03/20 08:00 44 L 21 127/84 96 04/03/20 07:30 46 L 95/73 95 04/03/20 07:00 48 L 12 112/86 97 04/03/20 06:30 44 L 14 115/80 97 04/03/20 06:00 43 L 33 H 113/78 96 04/03/20 05:30 42 L 29 H 98/72 95 04/03/20 05:00 37 L 25 H 67/45 97 04/03/20 04:30 39 L 23 80/46 96 04/03/20 04:00 97 F L 41 L 26 H 93/58 95 04/03/20 03:30 37 L 26 H 88/62 95 04/03/20 03:00 36 L 27 H 102/84 95 04/03/20 02:30 40 L 35 H 95 04/03/20 02:00 43 L 25 H 105/69 95 04/03/20 01:30 43 L 26 H 104/62 95 04/03/20 01:00 44 L 25 H 110/87 96 04/03/20 00:30 44 L 20 121/86 95 04/03/20 00:00 95.6 F L 44 L 22 101/62 95 04/02/20 23:30 46 L 18 112/72 96 04/02/20 23:04 45 L 26 H 112/72 95 04/02/20 23:00 44 L 33 H 121/107 95 04/02/20 22:30 44 L 32 H 122/73 94 L 04/02/20 22:00 43 L 32 H 114/91 95 04/02/20 21:30 48 L 34 H 119/80 95 04/02/20 21:00 45 L 33 H 127/81 97 04/02/20 20:30 47 L 22 119/86 96 04/02/20 20:00 97.6 F 48 L 24 124/105 96 04/02/20 19:30 46 L 28 H 123/79 97 04/02/20 19:00 46 L 21 119/79 97 04/02/20 18:30 45 L 35 H 90/50 96 04/02/20 18:00 48 L 33 H 94/63 96 04/02/20 17:30 45 L 26 H 94/59 95 04/02/20 17:00 43 L 29 H 107/71 95 04/02/20 16:30 48 L 32 H 134/94 95 04/02/20 16:00 44 L 30 H 105/76 96 04/02/20 15:30 43 L 36 H 112/61 96 04/02/20 15:00 46 L 35 H 88/53 95 04/02/20 14:30 40 L 26 H 92/52 94 L 04/02/20 14:00 41 L 27 H 85/54 95 04/02/20 13:30 40 L 29 H 90/60 96 04/02/20 13:00 42 L 31 H 101/65 96 04/02/20 12:30 41 L 29 H 99/65 96 04/02/20 12:00 96.1 F L 41 L 37 H 107/79 95 04/02/20 11:30 38 L 26 H 99/73 95 04/02/20 11:00 42 L 31 H 94/65 95 Intake and Output 04/02/20 04/03/20 04/03/20 22:59 06:59 14:59 Intake Total 446.667 543.333 250 Output Total 242 165 65 Balance 204.667 378.333 185 Intake: IV 200 250 250 Magnesium Sulfate-D5w Pmx 200 1 gm In Dextrose/Water 1 100ml.bag @ 100 mls/hr IVPB Q1H [facility] Rx#: [id number] Sodium Chloride 0.9% 250 250 250 ml @ 999 mls/hr IV .Q16M [facility] Rx#:[id number] Intake, IV Titration 246.667 53.333 Amount Amiodarone 300 mg In 246.667 53.333 Dextrose 5% in Water 250 ml @ 0.5 MG/MIN 25 mls/hr IV .Q10H [facility] Rx#: [id number] Oral 240 Output: Urine 242 165 65 Other: Voiding Method Indwelling Catheter Indwelling Catheter Weight 86.6 kg Results - Lab Results Most recent lab results Calcium 8.4 mg/dL (8.4-10.2) 04/03/20 05:10 Magnesium 2.1 mg/dL (1.6-2.3) 04/02/20 05:10 04/03/20 00:51 04/03/20 05:10 Assessment and Plan Plan: Assessment: 1. Acute kidney injury secondary to ATN secondary to cardiogenic shock and hemodynamic instability. Also component of contrast-induced acute kidney injury. Patient received IV contrast on March 30. Creatinine 1.64 today. Baseline creatinine near 1. Oliguric. 2. Acute myocardial infarction status post cardiac catheterization with a stent placement to the LAD in March 30. 3. A. fib with RVR maintained on amiodarone drip. 4. V. tach and V. fib status post shocks and cardioversion this admission. Scheduled for AICD placement potentially tomorrow. Maintain on lidocaine drip. 5. Acute systolic CHF with ejection fraction of 20-25% with mild to moderate pulmonary hypertension. 6. Hyponatremia secondary to acute kidney injury. 7. Metabolic acidosis secondary to acute kidney injury. 8. Diabetes mellitus. Plan: Hold off on diuretics. Repeat BMP this evening at 5 PM. Continue to assess daily for need for renal replacement therapy. Expect improvement in renal function once arrhythmia and bradycardia resolves. Discussed with patient and patient's daughter present at bedside. Thank you for the consultation. I will continue to follow patient with you during her hospital stay.
[2020-04-03 12:20] LABS: Glucose,Whole Blood 234 mg/dL (75-99)
--- NOTE | 2020-04-03 14:48 | P.PN ---
Subjective Progress Note Date: 04/03/20 This is an 79-year-old female with history of hypertension, diabetes, hypercholesterolemia, no previous documented history of underlying coronary artery disease. Patient was brought into the ER with sudden episode of diaphoresis, patient suddenly broke into sweats. On her way to the hospital, patient had some vague left-sided chest pain and substernal pain. She felt extremely tired and fatigued. And upon arrival to the ER, she was noted to be hypotensive, bradycardic, and she was quite pale. EKG questioned ST elevation myocardial infarction. And she continued to have chest pain while in the ER. Seen by cardiology on consultation, and she underwent cardiac catheterization were and she was found to have significant LAD lesion underwent stenting by Dr. Garay. Postoperatively patient felt much better, sent to the intensive care unit, she is asymptomatic at this point, denies any chest pain, denies any shortness of breath, and she remained hemodynamically stable. Denies any shortness of breath. Chest x-ray in the ICU showed mild cardiomegaly and small left effusion with atelectasis. Clinically however the patient has no active pulmonary symptoms she is on 5 L nasal cannula. Tapered down to 3 L and her O2 saturation remained 97%. On 04/01/2020 patient seen in follow-up in the intensive care unit, apparently patient had 4 episodes of sustained V. tach last night requiring synchronized cardioversion. Patient was started on amiodarone infusion on which she remains currently running at 0.5 mg/m, no other IVs infusing, she is awake and alert, she is oriented 3, she denies any shortness of breath, she is on supplemental oxygen, currently on 2 L, with a pulse ox of 96%, she is currently in sinus mechanism, with a rate of 61 BPM. She has had episodes of A. fib RVR inter mittently last night as well apparently. Cardiology is following. Blood pressure is 119/76, lung sounds are diminished, no crackles. Echocardiogram showed moderate concentric left ventricular hypertrophy, and severely impaired LV function with an EF of 20-25%, aneurysmal basal inferior LV wall motion, at [place] basal anteroseptal LV wall, hypokinesis of the inferior, apical inferior, apical septal saunders. Mild tricuspid regurg, [id number] pulmonary hypertension with right-sided pressures of 45.2 mmHg. Patient is status post emergent cardiac catheterization with PCI and stenting of a totally occluded LAD. Patient also had a chronically occluded RCA. LVEDP during the heart catheterization was 32 mmHg. Currently not on any vasopressors. Today's labs have been reviewed, showing white blood cell count of 13.1, hemoglobin is 14.2, sodium is 136, the rest of electrolytes were within normal limits, B1 is 28 creatinine is 1.18. Patient's troponins topped out at 133 with a second troponin, and came down to 108 with a troponin yesterday. Patient has palpable peripheral pulses, skin is warm and dry, she denies any shortness of breath, breathing seems to be comfortable. On 04/02/2020 patient seen in follow-up in the intensive care unit. She had another episode of sustained ventricular tachycardia last night at around 1900 requiring synchronized cardioversion, apparently following cardioversion she was bradycardic requiring transcutaneous pacemaker support. This morning she is having frequent ectopic beats, multiple runs of PVCs, multifocal. She remains on amiodarone drip at 1 mg/m, cardiology is rounding, and is planning on adding lidocaine drip at 1 mg/m. Blood pressure is 93/66, respiratory rate in the upper 20s to low 30s. And patient feels more short of breath today, she is on supplemental oxygen currently on 4 L, with a pulse ox of 94%. She is afebrile, lung sounds reveal coarse inspiratory crackles at bilateral N midlungs bilaterally. Denies any chest pain. She remains connected to the life pack via chest patces. She was started on Eliquis last night at 2-1/2 mg twice a day, she remains on the intensive dose of Lipitor, 80 mg, baby aspirin and [place], oral Lasix was started. Has been slight worsening in her renal function, with B1 up to 41, creatinine is 1.33, up from 1.18 on yesterday's labs, sodium is 132 contraceptive electrodes were within normal limits, white blood cell count is 13.6, hemoglobin is 14.2. 04/03/2020 the patient remains in intensive care unit. She had 2 episodes of ventricular fibrillation requiring external defibrillation yesterday. The patient is being closely monitored. She is currently in sinus bradycardia. She is currently on IV amiodarone which is running at 1 mg and minutes and the patient is also on lidocaine at 1 mg per minute. She is also on mexiletine at a dose of 150 mg by mouth twice a day. The patient is not having any chest pain. No shortness of breath. She is awake and alert. She is on oxygen at 4 L per minute nasal cannula with a pulse ox of 96%. Chest x-ray shows some small bilateral pleural effusion and some mild four-vessel congestion. Her creatinine is up to 1.6 and the patient is developing acute kidney injury with a BUN of 53 and the patient is to be seen by nephrology today. No altered mentation. Urine output is in order of 20 mL an hour. LFTs are slightly elevated with an AST of 65, ALT of 102 consistent with heart failure with secondary hepatic in sufficiency. Cardiology on the case. No immediate plans to repeat a cardiac catheterization. The patient is post non-STEMI and post emergent catheterization and stenting of the LAD. Circumflex is open. Right currently system is chronically occluded and the patient has collaterals. Objective - Vital Signs Vital signs: Vital Signs Temp 96.1 F L 04/03/20 12:00 Pulse 45 L 04/03/20 14:00 Resp 19 04/03/20 14:00 BP 123/78 04/03/20 14:00 Pulse Ox 96 04/03/20 14:00 Intake & Output 04/02/20 04/03/20 04/03/20 18:59 06:59 18:59 Intake Total 253.957 990.000 420 Output Total 175 347 105 Balance 78.957 643.000 315 Weight 86.6 kg Intake: IV 450 250 Magnesium Sulfate-D5w Pmx 200 1 gm In Dextrose/Water 1 100ml.bag @ 100 mls/hr IVPB Q1H [facility] Rx#: [id number] Sodium Chloride 0.9% 250 250 250 ml @ 999 mls/hr IV .Q16M [facility] Rx#:[id number] Intake, IV Titration 203.957 300.000 Amount Amiodarone 300 mg In 300.000 Dextrose 5% in Water 250 ml @ 0.5 MG/MIN 25 mls/hr IV .Q10H [facility] Rx#: [id number] Amiodarone 360 mg In 178.332 Dextrose 5% in Water 200 ml @ 1 MG/MIN 33.333 mls/ hr IV .Q6H [facility] Rx#: [id number] Lidocaine-D5w Pmx 2G/ 25.625 250Ml 2,000 mg In Dextrose/Water 1 250ml. bag @ 1 MG/MIN 7.5 mls/hr IV .Q24H [facility] Rx#: [id number] Oral 50 240 170 Output: Urine 175 347 105 Other: Voiding Method Indwelling Catheter Indwelling Catheter Indwelling Catheter - Exam GENERAL EXAM: Alert, very pleasant, 79-year-old white female, currently on 4 L oxygen with pulse ox of 94% HEAD: Normocephalic/atraumatic. EYES: Normal reaction of pupils, equal size. Conjunctiva pink, sclera white. NOSE: Clear with pink turbinates. THROAT: No erythema or exudates. NECK: No masses, no JVD, no thyroid enlargement, no adenopathy. CHEST: No chest wall deformity. Symmetrical expansion. LUNGS: Equal air entry with bibasilar crackles CVS: Irregular rate and rhythm, the patient remains bradycardic and the patient has a irregular S1 and S2, no gallops, no murmurs, no rubs ABDOMEN: Soft, nontender. No hepatosplenomegaly, normal bowel sounds, no guarding or rigidity. EXTREMITIES: No clubbing, mild ankle edema, no cyanosis, 2+ pulses and upper and lower extremities. MUSCULOSKELETAL: Muscle strength and tone normal. SPINE: No scoliosis or deformity SKIN: No rashes CENTRAL NERVOUS SYSTEM: Alert and oriented -3. No focal deficits, tone is normal in all 4 extremities. PSYCHIATRIC: Alert and oriented -3. Appropriate affect. Intact judgment and insight. - Labs CBC & Chem 7: 04/03/20 00:51 04/03/20 05:10 Labs: Abnormal Lab Results - Last 24 Hours (Table) 04/02/20 04/02/20 04/02/20 Range/Units 17:19 20:30 22:55 WBC (3.8-10.6) k/uL Sodium (137-145) mmol/L Carbon Dioxide (22-30) mmol/L BUN (7-17) mg/dL Creatinine (0.52-1.04) mg/dL Glucose (74-99) mg/dL POC Glucose (mg/dL) 222 H 202 H 218 H (75-99) mg/dL AST (14-36) U/L ALT (4-34) U/L Total Protein (6.3-8.2) g/dL Albumin (3.5-5.0) g/dL Urine Appearance (Clear) Urine Protein (Negative) Urine Blood (Negative) Ur Leukocyte Esterase (Negative) Urine RBC (0-5) /hpf Urine WBC (0-5) /hpf Urine Bacteria (None) /hpf Hyaline Casts (0-2) /lpf Urine Mucus (None) /hpf 04/03/20 04/03/20 04/03/20 Range/Units 00:51 05:10 06:51 WBC 13.8 H (3.8-10.6) k/uL Sodium 130 L (137-145) mmol/L Carbon Dioxide 21 L (22-30) mmol/L BUN 53 H (7-17) mg/dL Creatinine 1.64 H (0.52-1.04) mg/dL Glucose 213 H (74-99) mg/dL POC Glucose (mg/dL) 231 H (75-99) mg/dL AST 65 H (14-36) U/L ALT 102 H (4-34) U/L Total Protein 5.5 L (6.3-8.2) g/dL Albumin 3.1 L (3.5-5.0) g/dL Urine Appearance (Clear) Urine Protein (Negative) Urine Blood (Negative) Ur Leukocyte Esterase (Negative) Urine RBC (0-5) /hpf Urine WBC (0-5) /hpf Urine Bacteria (None) /hpf Hyaline Casts (0-2) /lpf Urine Mucus (None) /hpf 04/03/20 04/03/20 Range/Units 10:05 12:19 WBC (3.8-10.6) k/uL Sodium (137-145) mmol/L Carbon Dioxide (22-30) mmol/L BUN (7-17) mg/dL Creatinine (0.52-1.04) mg/dL Glucose (74-99) mg/dL POC Glucose (mg/dL) 234 H (75-99) mg/dL AST (14-36) U/L ALT (4-34) U/L Total Protein (6.3-8.2) g/dL Albumin (3.5-5.0) g/dL Urine Appearance Cloudy H (Clear) Urine Protein 1+ H (Negative) Urine Blood Large H (Negative) Ur Leukocyte Esterase Large H (Negative) Urine RBC >182 H (0-5) /hpf Urine WBC 58 H (0-5) /hpf Urine Bacteria Few H (None) /hpf Hyaline Casts 23 H (0-2) /lpf Urine Mucus Rare H (None) /hpf Assessment and Plan Plan: #1. Acute non-ST elevated myocardial infarction and cardiogenic shock. Patient had emergent cardiac catheterization on 03/30/2020 PCI stenting of the LAD #2. Coronary artery disease, status post PCI and stenting of proximal LAD on 03/30/2020 #3. Episodes of sustained ventricular tachycardia 4 on 04/01/2020 requiring synchronized cardioversion and runs of atrial fibrillation, and currently the patient is in bradycardia with an underlying fibrillation/A. fib rhythm. Nevertheless, the patient overnight had 2 more episodes of VT/VF requiring defibrillation. She is currently on a combination of amiodarone drip and lidoca ine drip and the patient is also on mexiletine #4. Acute kidney injury, secondary to cardiorenal syndrome #5. Acute systolic CHF, with impaired ejection fraction post acute [place] #6. Ischemic cardiomyopathy with severely impaired LV function and EF of 20-25% #7. Type 2 diabetes mellitus #8. Benign essential hypertension #9. Hypercholesterolemia #10 right bundle branch block pattern #11 acute hypoxic respiratory failure secondary to above as the patient has systolic heart failure with small bilateral pleural effusion and mild pulmonary edema. Plan Continue the combination of IV amiodarone, lidocaine and mexiletine Hold beta blockers for now per cardiology recommendation The patient was given a bolus of 2 mL of normal saline earlier today Monitor the cardiac rhythm Continue aspirin and Brilinta Monitor renal function consulted nephrology Hold diuretics Avoid nephrotoxic agents Chest x-ray showing some small bilateral pleural effusion. The patient is an acute hypoxic respiratory failure currently on 4lby nasal cannula. Repeat chest x-ray in the morning. Condition is critical.
[2020-04-03 16:46] LABS: Glucose,Whole Blood 224 mg/dL (75-99)
[2020-04-03] MEDS: AMIODARONE 360 MG in DEXTROSE 5% IN WATER 200 ML IV SCH ×4 (17:00→22:29)
[2020-04-03 17:25] LABS: Calcium 8.5 mg/dL (8.4-10.2); Potassium 4.5 mmol/L (3.5-5.1)
--- NOTE | 2020-04-03 19:26 | P.PN ---
Subjective The patient was seen at bedside and he remained to be on a ventilator and sedation. He is currently on Versed 2 mg an hour, propofol 30 mics per kilogram per minute and morphine 2 mg an hour. There is no seizure-like activity noted per ICU team. His leukocytosis is trending up. He is on IV Cardizem for the A. fib. 04/01/20 Yesterday evening patient developed several episodes of ventricular tachycardia, code was called for her on patient received multiple electric shock, she was placed on amiodarone drip, later on on lidocaine drip and tramadol and draped which is was running this morning, today she is fully awake and oriented, no chest pain or dyspnea. She is in sinus rhythm. Hemodynamically stable WBCs is up to 13K, creatinine is slightly up to 1.18, glucose above 200. Eliquis was started, continue with amiodarone drip, she is also on aspirin and Brilinta continue with lidocaine patch for low back pain, cardiology and ICU team on the case 04/02/20 Patient developed ventricular tachycardia yesterday evening about 7:30 p.m. and she received defibrillator shock later on her rhythm was wished to arterial fibrillation Cardiology on the case and currently she is on both amiodarone drip and lidocaine drip. Cardiology is planning to do another cardiac cath Lasix is given for fluid overload and on exam she has basal crepitation. Cr eatinine is slightly up to 1.3 and we will keep monitoring closely. Also she is bradycardic and tachypneic, cardiology and pulmonary/critical care team on the case 04/03/20 Patient is awake but looks tired, she is oriented to time place and person, she feels short of breath with little dry cough Last night she received another electric shock for her arrhythmia, she was bradycardic at 40s and 50s, beta boris was stopped. Sodium is 127 textile designer started her on mexiletine with the plan for pacemaker placement tomorrow by cardiology team She has decreased urine output and her creatinine, we ordered urine analysis and stopped losartan and called for nephrology consult. Patient has a Dorsey catheter. Urinalysis is suspicious for infection and patient is already on cefazolin. She is also on aspirin and Brilinta. Eliquis was held CONSTITUTIONAL: No fever, no malaise, no fatigue. HEENT: No recent visual problems or hearing problems. Denied any sore throat. CARDIOVASCULAR: No orthopnea, PND, no palpitations, no syncope. PULMONARY: No shortness of breath, no cough, no hemoptysis. GASTROINTESTINAL: No diarrhea, no nausea, no vomiting, no abdominal pain. Normoactive bowel sounds. NEUROLOGICAL: No headaches, no weakness, no numbness. Active Medications Generic Name Dose Route Start Last Admin Trade Name Freq PRN Reason Stop Dose Admin Acetaminophen 500 mg 03/31/20 10:43 04/02/20 07:15 Tylenol Tab PO 500 mg Q8HR PRN Administration Fever and/ or Pain Al Hydroxide/Mg Hydroxide 30 ml 03/30/20 23:04 Maalox PO Q4HR PRN Heartburn Aspirin 81 mg 03/31/20 09:00 04/03/20 08:47 Aspirin PO 81 mg DAILY [facility] Administration Atorvastatin Calcium 80 mg 03/31/20 21:00 04/02/20 20:35 Lipitor PO 80 mg HS [facility] Administration Atropine Sulfate 0.5 mg 03/30/20 23:04 Atropine IV ONCE PRN Symptomatic Bradycardia Famotidine 20 mg 04/02/20 09:00 04/03/20 08:46 Pepcid IV 20 mg DAILY [facility] Administration Lidocaine HCl/Dextrose 2,000 250 mls @ 7.5 mls/hr 04/02/20 22:45 04/03/20 12:00 mg/ IV Solution IV 0 mg/min .Q24H [facility] 0 mls/hr Infusion 1 MG/MIN Cefazolin Sodium 2 gm/ Sodium 50 mls @ 100 mls/hr 04/04/20 07:30 Chloride IVPB 04/04/20 07:59 ONCE ONE Cefazolin Sodium 1,000 mg/ 250 mls @ 500 mls/hr 04/04/20 07:00 Sodium Chloride IRRIGATION 04/04/20 07:29 ONCE ONE Amiodarone HCl 360 mg/ 200 mls @ 33.333 mls/hr 04/03/20 17:00 04/03/20 17:00 Dextrose/Water IV 1 mg/min .Q6H [facility] 33.333 mls/hr Administration 1 MG/MIN Insulin Aspart 0 unit 03/31/20 12:30 04/03/20 17:05 Novolog SQ 3 unit ACHS [facility] Administration Protocol Lidocaine 1 patch 03/31/20 19:15 04/03/20 08:48 Lidoderm TOPICAL 1 patch DAILY [facility] Administration Metoprolol Succinate 25 mg 04/03/20 09:00 04/03/20 08:51 Toprol Xl PO Not Given DAILY [facility] Mexiletine HCl 150 mg 04/03/20 00:00 04/03/20 16:32 Mexiletine 150 Mg Cap PO 150 mg Q8HR [facility] Administration Naloxone HCl 0.2 mg 03/30/20 21:33 Narcan IV Q2M PRN Opioid Reversal Nitroglycerin 0.4 mg 03/30/20 23:04 Nitrostat SUBLINGUAL Q5M PRN Chest Pain Ticagrelor 90 mg 03/31/20 09:00 04/03/20 08:51 Brilinta PO 90 mg BID [facility] Administration Objective - Vital Signs Vital signs: Vital Signs Temp 95.1 F L 04/03/20 16:00 Pulse 45 L 04/03/20 17:00 Resp 22 04/03/20 17:00 BP 121/75 04/03/20 17:00 Pulse Ox 95 04/03/20 17:00 Intake & Output 04/02/20 04/03/20 04/03/20 18:59 06:59 18:59 Intake Total 253.957 990.000 518.875 Output Total 175 347 200 Balance 78.957 643.000 318.875 Weight 86.6 kg Intake: IV 450 250 Magnesium Sulfate-D5w Pmx 200 1 gm In Dextrose/Water 1 100ml.bag @ 100 mls/hr IVPB Q1H [facility] Rx#: [id number] Sodium Chloride 0.9% 250 250 250 ml @ 999 mls/hr IV .Q16M [facility] Rx#:[id number] Intake, IV Titration 203.957 300.000 98.875 Amount Amiodarone 300 mg In 300.000 Dextrose 5% in Water 250 ml @ 0.5 MG/MIN 25 mls/hr IV .Q10H [facility] Rx#: [id number] Amiodarone 360 mg In 178.332 Dextrose 5% in Water 200 ml @ 1 MG/MIN 33.333 mls/ hr IV .Q6H [facility] Rx#: [id number] Lidocaine-D5w Pmx 2G/ 25.625 250Ml 2,000 mg In Dextrose/Water 1 250ml. bag @ 1 MG/MIN 7.5 mls/hr IV .Q24H [facility] Rx#: [id number] Lidocaine-D5w Pmx 2G/ 98.875 250Ml 2,000 mg In Dextrose/Water 1 250ml. bag @ 1 MG/MIN 7.5 mls/hr IV .Q24H [facility] Rx#: [id number] Oral 50 240 170 Output: Urine 175 347 200 Other: Voiding Method Indwelling Catheter Indwelling Catheter Indwelling Catheter - Exam GENERAL: The patient is alert and oriented x3, not in any acute distress. Well developed, well nourished. HEENT: Pupils are round and equally reacting to light. EOMI. No scleral icterus. No conjunctival pallor. Normocephalic, atraumatic. No pharyngeal erythema. No thyromegaly. CARDIOVASCULAR: S1 and S2 present. No murmurs, rubs, or gallops. PULMONARY: Chest is clear to auscultation, no wheezing or crackles. ABDOMEN: Soft, nontender, nondistended, normoactive bowel sounds. No palpable organomegaly. MUSCULOSKELETAL: No joint swelling or deformity. EXTREMITIES: No cyanosis, clubbing, or pedal edema. NEUROLOGICAL: Gross neurological examination did not reveal any focal deficits. SKIN: No rashes. no petechiae. - Labs CBC & Chem 7: 04/03/20 00:51 04/03/20 16:40 Labs: Abnormal Lab Results - Last 24 Hours (Table) 04/02/20 04/02/20 04/02/20 Range/Units 17:19 20:30 22:55 WBC (3.8-10.6) k/uL Sodium (137-145) mmol/L Carbon Dioxide (22-30) mmol/L BUN (7-17) mg/dL Creatinine (0.52-1.04) mg/dL Glucose (74-99) mg/dL POC Glucose (mg/dL) 222 H 202 H 218 H (75-99) mg/dL AST (14-36) U/L ALT (4-34) U/L Total Protein (6.3-8.2) g/dL Albumin (3.5-5.0) g/dL Urine Appearance (Clear) Urine Protein (Negative) Urine Blood (Negative) Ur Leukocyte Esterase (Negative) Urine RBC (0-5) /hpf Urine WBC (0-5) /hpf Urine Bacteria (None) /hpf Hyaline Casts (0-2) /lpf Urine Mucus (None) /hpf 04/03/20 04/03/20 04/03/20 Range/Units 00:51 05:10 06:51 WBC 13.8 H (3.8-10.6) k/uL Sodium 130 L (137-145) mmol/L Carbon Dioxide 21 L (22-30) mmol/L BUN 53 H (7-17) mg/dL Creatinine 1.64 H (0.52-1.04) mg/dL Glucose 213 H (74-99) mg/dL POC Glucose (mg/dL) 231 H (75-99) mg/dL AST 65 H (14-36) U/L ALT 102 H (4-34) U/L Total Protein 5.5 L (6.3-8.2) g/dL Albumin 3.1 L (3.5-5.0) g/dL Urine Appearance (Clear) Urine Protein (Negative) Urine Blood (Negative) Ur Leukocyte Esterase (Negative) Urine RBC (0-5) /hpf Urine WBC (0-5) /hpf Urine Bacteria (None) /hpf Hyaline Casts (0-2) /lpf Urine Mucus (None) /hpf 04/03/20 04/03/20 04/03/20 Range/Units 10:05 12:19 16:44 WBC (3.8-10.6) k/uL Sodium (137-145) mmol/L Carbon Dioxide (22-30) mmol/L BUN (7-17) mg/dL Creatinine (0.52-1.04) mg/dL Glucose (74-99) mg/dL POC Glucose (mg/dL) 234 H 224 H (75-99) mg/dL AST (14-36) U/L ALT (4-34) U/L Total Protein (6.3-8.2) g/dL Albumin (3.5-5.0) g/dL Urine Appearance Cloudy H (Clear) Urine Protein 1+ H (Negative) Urine Blood Large H (Negative) Ur Leukocyte Esterase Large H (Negative) Urine RBC >182 H (0-5) /hpf Urine WBC 58 H (0-5) /hpf Urine Bacteria Few H (None) /hpf Hyaline Casts 23 H (0-2) /lpf Urine Mucus Rare H (None) /hpf Microbiology - Last 24 Hours (Table) 04/03/20 10:05 Urine Culture - Preliminary Urine,Voided Assessment and Plan Assessment: Acute non-ST elevation myocardial infarction, status post cardiac cath showed triple vessel coronary artery disease and status post stent placement of the LAD Acute kidney injury with oliguria Possible acute urinary tract infection Cardiogenic shock status post pressors, improved Polymorphic ventricular tachycardia, various episodes needing multiple shock Atrial fibrillation Leukocytosis, mostly reactive. Diabetes mellitus with Hyperglycemia, check hemoglobin A1c Plan: This is a pleasant 79 years old female who presents with cardiogenic shock and non-STEMI, she status post stent placement. Continue with aspirin and Brilinta . Follow-up recommendation by pulmonary/critical care team. Continue with insulin sliding scale. Metformin on hold Hold diuretics and beta boris. Monitor renal function. Continue with antibiotics. Check procalcitonin Consult nephrology Follow-up recommendation by textile designer and other consultants Labs and medication were reviewed.. Continue same treatment. Continue with symptomatic treatment. Resume home medication. Monitor lytes and vitals. DVT and GI prophylaxis. Further recommendations of the clinical course of the patient DVT prophylaxis: Hold Eliquis for now GI Prophylaxis: Pepcid Prognosis is guarded
[2020-04-03 19:54] LABS: Glucose,Whole Blood 213 mg/dL (75-99)
[2020-04-03] MEDS: LIDOCAINE-D5W PMX 2G/250ML 2,000 MG in DEXTROSE/WATER 1 250ML.BAG IV SCH (19:54)
[2020-04-03] MEDS: ATORVASTATIN 80 MG TAB PO SCH (20:02)
[2020-04-04] MEDS: AMIODARONE 360 MG in DEXTROSE 5% IN WATER 200 ML IV SCH ×2 (04:14)
[2020-04-04 05:46] LABS: HCT 40.5 % (34.0-46.0); HGB 13.1 gm/dL (11.4-16.0); MCH 27.6 pg (25.0-35.0); MCHC 32.4 g/dL (31.0-37.0); MCV 85.1 fL (80.0-100.0); Platelet Count 235 k/uL (150-450); RBC 4.76 m/uL (3.80-5.40); RDW 13.5 % (11.5-15.5); WBC 13.6 k/uL (3.8-10.6)
[2020-04-04 05:54] LABS: Calcium 8.5 mg/dL (8.4-10.2); Magnesium 2.6 mg/dL (1.6-2.3); Potassium 4.4 mmol/L (3.5-5.1)
[2020-04-04 06:27] LABS: Glucose,Whole Blood 219 mg/dL (75-99)
[2020-04-04] MEDS: INSULIN ASPART (NovoLOG) 100 UNIT/ML VIAL SQ SCH (06:30)
[2020-04-04] MEDS ORDERED: ceFAZolin 1,000 MG in SODIUM CHLORIDE 0.9% IRRIGATIO 250 ML IRRIGATION ONE (07:00)
--- NOTE | 2020-04-04 07:42 | XR ---
EXAMINATION TYPE: XR chest 1V portable DATE OF EXAM: 04/04/2020 COMPARISON: 04/03/2020 HISTORY: Shortness of breath TECHNIQUE: Single frontal view of the chest is obtained. FINDINGS: Findings are similar to prior exam. There is no evident pneumothorax. Heart is obscured bu t likely stable. Bibasilar increased attenuation persists within the lungs. There are overlying cardi ac leads. IMPRESSION: Findings are similar to prior exam. Correlate for pneumonia, possible associated effusio n.
[2020-04-04] MEDS ORDERED: LIDOCAINE 1% INJ 10MG/ML (20 ML MDV) ONE (07:48)
[2020-04-04] MEDS: MEXILETINE 150 MG CAP PO SCH (07:50)
[2020-04-04] MEDS ORDERED: IV FLUID CONTINUATION 500 ML IV ONE (07:56)
[2020-04-04] MEDS ORDERED: SODIUM CHLORIDE 0.9% 1,000 ML IV SCH ×2 (08:45)
--- NOTE | 2020-04-04 09:46 | P.PN ---
Subjective patient is seen in follow for acute kidney injury. Creatinine 1.9 today. Urine output 20-30 mL an hour. Does get dyspneic when lays flat. Currently on nasal cannula. No vomiting or diarrhea. Defibrillator placement rescheduled for tomorrow. Vital signs are stable. General: The patient appeared well nourished and normally developed. HEENT: Head exam is unremarkable. Neck is without jugular venous distension. LUNGS: Breath sounds decreased. HEART: bradycardic. ABDOMEN: soft, nontender. EXTREMITITES: 1+ edema. Objective - Vital Signs Vital signs: Vital Signs Temp 96.1 F L 04/04/20 00:00 Pulse 49 L 04/04/20 07:00 Resp 11 L 04/04/20 07:00 BP 126/63 04/04/20 07:00 Pulse Ox 96 04/04/20 07:00 Intake & Output 04/03/20 04/04/20 04/04/20 18:59 06:59 18:59 Intake Total 518.875 374.441 25 Output Total 220 265 35 Balance 298.875 109.441 -10 Weight 89.1 kg Intake: IV 250 25 Sodium Chloride 0.9% 250 250 ml @ 999 mls/hr IV .Q16M [facility] Rx#:[id number] Intake, IV Titration 98.875 374.441 Amount Amiodarone 360 mg In 374.441 Dextrose 5% in Water 200 ml @ 1 MG/MIN 33.333 mls/ hr IV .Q6H [facility] Rx#: [id number] Lidocaine-D5w Pmx 2G/ 98.875 250Ml 2,000 mg In Dextrose/Water 1 250ml. bag @ 1 MG/MIN 7.5 mls/hr IV .Q24H [facility] Rx#: [id number] Oral 170 Output: Urine 220 265 35 Other: Voiding Method Indwelling Catheter Indwelling Catheter - Labs CBC & Chem 7: 04/04/20 05:03 04/04/20 05:03 Labs: Abnormal Lab Results - Last 24 Hours (Table) 04/03/20 04/03/20 04/03/20 Range/Units 10:05 12:19 16:40 WBC (3.8-10.6) k/uL Sodium 127 L (137-145) mmol/L Chloride 96 L (98-107) mmol/L Carbon Dioxide 20 L (22-30) mmol/L BUN 58 H (7-17) mg/dL Creatinine 1.76 H (0.52-1.04) mg/dL Glucose 233 H (74-99) mg/dL POC Glucose (mg/dL) 234 H (75-99) mg/dL Magnesium (1.6-2.3) mg/dL Urine Appearance Cloudy H (Clear) Urine Protein 1+ H (Negative) Urine Blood Large H (Negative) Ur Leukocyte Esterase Large H (Negative) Urine RBC >182 H (0-5) /hpf Urine WBC 58 H (0-5) /hpf Urine Bacteria Few H (None) /hpf Hyaline Casts 23 H (0-2) /lpf Urine Mucus Rare H (None) /hpf 04/03/20 04/03/20 04/04/20 Range/Units 16:44 19:52 05:03 WBC 13.6 H (3.8-10.6) k/uL Sodium (137-145) mmol/L Chloride (98-107) mmol/L Carbon Dioxide (22-30) mmol/L BUN (7-17) mg/dL Creatinine (0.52-1.04) mg/dL Glucose (74-99) mg/dL POC Glucose (mg/dL) 224 H 213 H (75-99) mg/dL Magnesium (1.6-2.3) mg/dL Urine Appearance (Clear) Urine Protein (Negative) Urine Blood (Negative) Ur Leukocyte Esterase (Negative) Urine RBC (0-5) /hpf Urine WBC (0-5) /hpf Urine Bacteria (None) /hpf Hyaline Casts (0-2) /lpf Urine Mucus (None) /hpf 04/04/20 04/04/20 Range/Units 05:03 06:25 WBC (3.8-10.6) k/uL Sodium 126 L (137-145) mmol/L Chloride 95 L (98-107) mmol/L Carbon Dioxide 20 L (22-30) mmol/L BUN 66 H (7-17) mg/dL Creatinine 1.90 H (0.52-1.04) mg/dL Glucose 214 H (74-99) mg/dL POC Glucose (mg/dL) 219 H (75-99) mg/dL Magnesium 2.6 H (1.6-2.3) mg/dL Urine Appearance (Clear) Urine Protein (Negative) Urine Blood (Negative) Ur Leukocyte Esterase (Negative) Urine RBC (0-5) /hpf Urine WBC (0-5) /hpf Urine Bacteria (None) /hpf Hyaline Casts (0-2) /lpf Urine Mucus (None) /hpf Microbiology - Last 24 Hours (Table) 04/03/20 10:05 Urine Culture - Preliminary Urine,Voided Assessment and Plan Plan: Assessment: 1. Acute kidney injury secondary to ATN secondary to cardiogenic shock and hemodynamic instability. Also component of contrast-induced acute kidney injury. Patient received IV contrast on March 30. Creatinine 1.9 today. Baseline creatinine near 1. urine output 20-30 mL an hour. 2. Acute myocardial infarction status post cardiac catheterization with a stent placement to the LAD in March 30. 3. A. fib with RVR maintained on amiodarone drip. 4. V. tach and V. fib status post shocks and cardioversion this admission. Scheduled for AICD placement potentially tomorrow. 5. Acute systolic CHF with ejection fraction of 20-25% with mild to moderate pulmonary hypertension. 6. Hyponatremia secondary to acute kidney injury. 7. Metabolic acidosis secondary to acute kidney injury. 8. Diabetes mellitus. Plan: encouraged oral intake. 1200 mL fluid restriction. Add ensure 2-3 times daily. Continue to assess daily for need for renal replacement therapy. Expect improvement in renal function once arrhythmia and bradycardia resolves. Discussed with patient and patient's daughter present at bedside. if urine output stays persistently low for 2-3 hours, I will give her a dose of Lasix.
[2020-04-04] MEDS ORDERED: PROPOFOL 10 MG/ML 100 ML VIAL IV ONE (11:05)
[2020-04-04] MEDS ORDERED: DEXTROSE 5% IN WATER 50 ML BAG ONE (11:05)
[2020-04-04] MEDS ORDERED: SODIUM BICARB 8.4% 50 ML SYR (1 MEQ/ML) ONE (11:05)
[2020-04-04] MEDS ORDERED: EPINEPHrine 10 ML SYRINGE (0.1 MG/ML) ONE (11:05)
[2020-04-04] MEDS ORDERED: AMIODARONE 50 MG/ML 3 ML VIAL IV ONE (11:05)
[2020-04-04] MEDS ORDERED: propofoL 100 ML IV ONE (11:10)
[2020-04-04 11:26] LABS: Glucose,Whole Blood 293 mg/dL (75-99)
[2020-04-04] MEDS ORDERED: NOREPINEPHRIN 4 MG-0.9% NS PMX 4 MG/250 ML ML IV ONE (11:39)
[2020-04-04] MEDS ORDERED: MORPHINE SULFATE 2 MG/ML SYRINGE ONE (12:06)
--- NOTE | 2020-04-04 12:16 | P.PN ---
Progress Note - Text This morning patient is stable. She was taken for ICD implant but apparently she had had some applesauce with her pills and anesthesia canceled case She had had an episode of VT/VF at night and required defibrillation Her vitals are stable morning I did speak to her daughter and explained that the most important reason for device therapy was atrial pacing because he was unable to give beta blockers and I have scheduled the patient for procedure tomorrow morning on Tuesday However around 11:00 she had an episode of VT VF and then EEA With resuscitative efforts her blood pressure did return but she is now intubated I had a discussion with the daughter and I would recommend a DO NOT RESUSCITATE status. The daughter is in agreement
--- NOTE | 2020-04-04 14:06 | P.PN ---
Subjective Progress Note Date: 04/04/20 Principal diagnosis: Acute non-ST elevated myocardial infarction, A. fib with RVR This is an 79-year-old female with history of hypertension, diabetes, hypercholesterolemia, no previous documented history of underlying coronary artery disease. Patient was brought into the ER with sudden episode of diaphoresis, patient suddenly broke into sweats. On her way to the hospital, alejandra schaefer had some vague left-sided chest pain and substernal pain. She felt extremely tired and fatigued. And upon arrival to the ER, she was noted to be hypotensive, bradycardic, and she was quite pale. EKG questioned ST elevation myocardial infarction. And she continued to have chest pain while in the ER. Seen by cardiology on consultation, and she underwent cardiac catheterization were and she was found to have significant LAD lesion underwent stenting by Dr. Garay. Postoperatively patient felt much better, sent to the intensive care unit, she is asymptomatic at this point, denies any chest pain, denies any shortness of breath, and she remained hemodynamically stable. Denies any s hortness of breath. Chest x-ray in the ICU showed mild cardiomegaly and small left effusion with atelectasis. Clinically however the patient has no active pulmonary symptoms she is on 5 L nasal cannula. Tapered down to 3 L and her O2 saturation remained 97%. On 04/01/2020 patient seen in follow-up in the intensive care unit, apparently patient had 4 episodes of sustained V. tach last night requiring synchronized cardioversion. Patient was started on amiodarone infusion on which she remains currently running at 0.5 mg/m, no other IVs infusing, she is awake and alert, she is oriented 3, she denies any shortness of breath, she is on supplemental oxygen, currently on 2 L, with a pulse ox of 96%, she is currently in sinus mechanism, with a rate of 61 BPM. She has had episodes of A. fib RVR intermittently last night as well apparently. Cardiology is following. Blood pressure is 119/76, lung sounds are diminished, no crackles. Echocardiogram showed moderate concentric left ventricular hypertrophy, and severely impaired LV function with an EF of 20-25%, aneurysmal basal inferior LV wall motion, at [place] basal anteroseptal LV wall, hypokinesis of the inferior, apical inferior, apical septal saunders. Mild tricuspid regurg, [id number] pulmonary hypertension with right-sided pressures of 45.2 mmHg. Patient is status post emergent cardiac catheterization with PCI and stenting of a totally occluded LAD. Patient also had a chronically occluded RCA. LVEDP during the h eart catheterization was 32 mmHg. Currently not on any vasopressors. Today's labs have been reviewed, showing white blood cell count of 13.1, hemoglobin is 14.2, sodium is 136, the rest of electrolytes were within normal limits, B1 is 28 creatinine is 1.18. Patient's troponins topped out at 133 with a second troponin, and came down to 108 with a troponin yesterday. Patient has palpable peripheral pulses, skin is warm and dry, she denies any shortness of breath, breathing seems to be comfortable. On 04/02/2020 patient seen in follow-up in the intensive care unit. She had another episode of sustained ventricular tachycardia last night at around 1900 requiring synchronized cardioversion, apparently following cardioversion she was bradycardic requiring transcutaneous pacemaker support. This morning she is having frequent ectopic beats, multiple runs of PVCs, multifocal. She remains o n amiodarone drip at 1 mg/m, cardiology is rounding, and is planning on adding lidocaine drip at 1 mg/m. Blood pressure is 93/66, respiratory rate in the upper 20s to low 30s. And patient feels more short of breath today, she is on supplemental oxygen currently on 4 L, with a pulse ox of 94%. She is afebrile, lung sounds reveal coarse inspiratory crackles at bilateral N midlungs bilaterally. Denies any chest pain. She remains connected to the life pack via chest patces. She was started on Eliquis last night at 2-1/2 mg twice a day, she remains on the intensive dose of Lipitor, 80 mg, baby aspirin and Griggs, oral Lasix was started. Has been slight worsening in her renal function, with BUN up to 41, creatinine is 1.33, up from 1.18 on yesterday's labs, sodium is 132 contraceptive electrodes were within normal limits, white blood cell count is 13.6, hemoglobin is 14.2. On 04/04/2020 patient was seen in rounds this morning, overnight patient had another round of sustained V. tach requiring synchronized cardioversion. Currently in the sinus mechanism, bradycardic with a rate of 50 BPM, room air pulse ox was 89-91%, patient is requiring supplemental oxygen at 2 L, and her p ulse ox is around 93% on 2 L of oxygen, lung sounds reveal bibasilar crackles, patient denies worsening dyspnea, denied any chest pain. Lidocaine was discontinued by cardiology, remains on amiodarone drip at 1 mg/m. Discussed the case with cardiology who was planning on AICD/pacemaker insertion sometime today however procedure was canceled and rescheduled for tomorrow. Today's chest x- ray showed bibasilar increased attenuation, findings similar to the prior exam. Today's labs were reviewed, patient's renal profile has been steadily are sending over last few days, BUN 66 and creatinine is 1.9, serum sodium is 126, potassium is 4.4, chloride is 95, CO2 is 20. Patient is actually getting gentle IV hydration with 0.9 normal saline at the rate of 50 ML per hour. Her daughter is at the bedside, her current condition was discussed with her daughter, and cardiology. At around 11:00 this morning patient suffered a cardiopulmonary arrest, CODE MARY was called, patient was in the ventricular fibrillation, requiring defibrillation, and following that patient was in the pulseless electrical activity, and then asystole. ACLS protocol was started, patient required CPR, several rounds of epinephrine, an amp of sodium bicarbonate, she was emergently intubated, placed on mechanical ventilator. ROSC was achieved at 1121, and total down time was approximated to be around 15 minutes. Patient was starting to become very agitated, she was placed on sedation in the form of depressive and, she became hypotensive, and bradycardic, levo fed was started and a liter bolus was ordered, blood gases are pending, chest x-ray has been ordered. Cardiology discussed prognosis with the patient's daughters who were at the bedside, and decision was made to make the patient DO NOT RESUSCITATE, and patient continued to decline afterward, remaining hypotensive, bradycardic with a heart rate going down in the 30s and 20s, and signs of impending cardiac arrest and the patient's family decided to withdraw life support, and make the patient comfortable. We came and spoke to the patient's daughters, 3 daughters at the bedside, and withdrawal of life support was requested by the family, with the goal of making the patient comfortable. One of the daughters already called her furniture removalist's assistant. They understand their mothers critical condition, and extremely poor prognosis, and would like to proceed with comfort care at this time Objective - Vital Signs Vital signs: Vital Signs Temp 96.1 F L 04/04/20 00:00 Pulse 49 L 04/04/20 07:00 Resp 11 L 04/04/20 07:00 BP 126/63 04/04/20 07:00 Pulse Ox 96 04/04/20 07:00 Intake & Output 04/03/20 04/04/20 04/04/20 18:59 06:59 18:59 Intake Total 518.875 374.441 25 Output Total 220 265 45 Balance 298.875 109.441 -20 Weight 89.1 kg Intake: IV 250 25 Sodium Chloride 0.9% 250 250 ml @ 999 mls/hr IV .Q16M DAVON Rx#:[id number] Intake, IV Titration 98.875 374.441 Amount Amiodarone 360 mg In 374.441 Dextrose 5% in Water 200 ml @ 1 MG/MIN 33.333 mls/ hr IV .Q6H DAVON Rx#: [id number] Lidocaine-D5w Pmx 2G/ 98.875 250Ml 2,000 mg In Dextrose/Water 1 250ml. bag @ 1 MG/MIN 7.5 mls/hr IV .Q24H DAVON Rx#: [id number] Oral 170 Output: Urine 220 265 45 Other: Voiding Method Indwelling Catheter Indwelling Catheter - Exam GENERAL EXAM: 79-year-old white female, intubated, sedated, on mechanical ventilator with agonal breathing, patient is having long pauses, bradycardia, with a heart rate on down into the 30s and 20s, patient will be extubated per family wishes HEAD: Normocephalic/atraumatic. EYES: Normal reaction of pupils, equal size. Conjunctiva pink, sclera white. NOSE: Clear with pink turbinates. THROAT: No erythema or exudates. NECK: No masses, no JVD, no thyroid enlargement, no adenopathy. CHEST: No chest wall deformity. Symmetrical expansion. LUNGS: Equal air entry with bibasilar crackles CVS: Irregular rate and rhythm, normal S1 and S2, no gallops, no murmurs, no rubs ABDOMEN: Soft, nontender. No hepatosplenomegaly, normal bowel sounds, no guarding or rigidity. EXTREMITIES: No clubbing, mild ankle edema, no cyanosis, 2+ pulses and upper and lower extremities. MUSCULOSKELETAL: Muscle strength and tone normal. SPINE: No scoliosis or deformity SKIN: No rashes CENTRAL NERVOUS SYSTEM: Intubated, sedated No focal deficits, tone is normal in all 4 extremities. - Labs CBC & Chem 7: 04/04/20 05:03 04/04/20 05:03 Labs: Abnormal Lab Results - Last 24 Hours (Table) 04/03/20 04/03/20 04/03/20 Range/Units 16:40 16:44 19:52 WBC (3.8-10.6) k/uL Sodium 127 L (137-145) mmol/L Chloride 96 L (98-107) mmol/L Carbon Dioxide 20 L (22-30) mmol/L BUN 58 H (7-17) mg/dL Creatinine 1.76 H (0.52-1.04) mg/dL Glucose 233 H (74-99) mg/dL POC Glucose (mg/dL) 224 H 213 H (75-99) mg/dL Magnesium (1.6-2.3) mg/dL Procalcitonin (0.02-0.09) ng/mL 04/04/20 04/04/20 04/04/20 Range/Units 05:03 05:03 05:03 WBC 13.6 H (3.8-10.6) k/uL Sodium 126 L (137-145) mmol/L Chloride 95 L (98-107) mmol/L Carbon Dioxide 20 L (22-30) mmol/L BUN 66 H (7-17) mg/dL Creatinine 1.90 H (0.52-1.04) mg/dL Glucose 214 H (74-99) mg/dL POC Glucose (mg/dL) (75-99) mg/dL Magnesium 2.6 H (1.6-2.3) mg/dL Procalcitonin 0.77 H (0.02-0.09) ng/mL 04/04/20 04/04/20 Range/Units 06:25 11:24 WBC (3.8-10.6) k/uL Sodium (137-145) mmol/L Chloride (98-107) mmol/L Carbon Dioxide (22-30) mmol/L BUN (7-17) mg/dL Creatinine (0.52-1.04) mg/dL Glucose (74-99) mg/dL POC Glucose (mg/dL) 219 H 293 H (75-99) mg/dL Magnesium (1.6-2.3) mg/dL Procalcitonin (0.02-0.09) ng/mL Microbiology - Last 24 Hours (Table) 04/03/20 10:05 Urine Culture - Preliminary Urine,Voided Assessment and Plan Plan: Assessment: #1. Cardiopulmonary arrest, requiring ACLS protocol, CPR, and intubation and placement on mechanical ventilator, related to arrhythmia, myocardial ischemia. Patient was resuscitated for around 15 minutes with return of spontaneous circ ulation, however remained hypotensive, very bradycardic, requiring vasopressor support, and per family's wishes life-support will be withdrawn #2. Multiple episodes of sustained ventricular tachycardia requiring synchronized cardioversion, and infusion of multiple anti-arrhythmic medications including amiodarone, lidocaine drip and mexiletine. These episodes were also alternating with bradycardia, and sinus pauses and runs of A. fib with RVR #3. Acute non-ST elevated myocardial infarction and cardiogenic shock. Patient had emergent cardiac catheterization on 03/30/2020 PCI stenting of the LAD #4. Coronary artery disease, status post PCI and stenting of proximal LAD on 03/30/2020 #5. Hyponatremia, possibly hypervolemic #6. Acute kidney injury related to cardiorenal causes #7. Multivessel coronary artery disease #8. Acute systolic CHF #9. Ischemic cardiomyopathy with severely impaired LV function and EF of 20-25% #10. Type 2 diabetes mellitus #11. Benign essential hypertension #12. Hypercholesterolemia Plan: We spoke to the family about the patient's prognosis, unfortunately patient has suffered a cardiopulmonary arrest, and although return of spontaneous ci rculation was achieved patient is deteriorating, bradycardic, hemodynamically stable, have been long pauses on the monitor, requiring vasopressor support, cardiology has discussed prognosis with the patient's family who has made the decision to proceed with the DO NOT RESUSCITATE, and remove life support for comfort measures. Patient's 3 daughters are at the bedside, they'll agree with the decision, and we'll proceed with extubation and terminal wean at this time per family wishes I performed a history & physical examination of the patient and discussed their management with my nurse practitioner, Yelena Ramirez. I reviewed the nurse practitioner's note and agree with the documented findings and plan of care. Lung sounds are positive for diminished breath sounds. The findings and the impression was discussed with the patient. I attest to the documentation by the nurse practitioner. Time with Patient: Greater than 30
[2020-04-04 17:05] VITALS: BP 55/37; PULSE 29; RESP 16; TEMP 96.6
--- NOTE | 2020-04-05 05:15 | P.PN ---
Subjective The patient was seen at bedside and he remained to be on a ventilator and sedation. He is currently on Versed 2 mg an hour, propofol 30 mics per kilogram per minute and morphine 2 mg an hour. There is no seizure-like activity noted per ICU team. His leukocytosis is trending up. He is on IV Cardizem for the A. fib. 04/01/20 Yesterday evening patient developed several episodes of ventricular tachycardia, code was called for her on patient received multiple electric shock, she was placed on amiodarone drip, later on on lidocaine drip and tramadol and draped which is was running this morning, today she is fully awake and oriented, no chest pain or dyspnea. She is in sinus rhythm. Hemodynamically stable WBCs is up to 13K, creatinine is slightly up to 1.18, glucose above 200. Eliquis was started, continue with amiodarone drip, she is also on aspirin and Brilinta continue with lidocaine patch for low back pain, cardiology and ICU team on the case 04/02/20 Patient developed ventricular tachycardia yesterday evening about 7:30 p.m. and she received defibrillator shock later on her rhythm was wished to arterial fibrillation Cardiology on the case and currently she is on both amiodarone drip and lidocaine drip. Cardiology is planning to do another cardiac cath Lasix is given for fluid overload and on exam she has basal crepitation. Cr eatinine is slightly up to 1.3 and we will keep monitoring closely. Also she is bradycardic and tachypneic, cardiology and pulmonary/critical care team on the case 04/03/20 Patient is awake but looks tired, she is oriented to time place and person, she feels short of breath with little dry cough Last night she received another electric shock for her arrhythmia, she was bradycardic at 40s and 50s, beta boris was stopped. Sodium is 127 wastewater supervisor started her on mexiletine with the plan for pacemaker placement tomorrow by cardiology team She has decreased urine output and her creatinine, we ordered urine analysis and stopped losartan and called for nephrology consult. Patient has a Dorsey catheter. Urinalysis is suspicious for infection and patient is already on cefazolin. She is also on aspirin and Brilinta. Eliquis was held 04/04/20 Patient remains in the ICU in critical condition, she developed cardiopulmonary arrest and CODE BLUE was activated, patient was in ventricular fibrillation requiring electric shock. Patient developed several cardiac arrhythmias and asystole and had to be intubated, she became hypotensive and needed pressors, at certain point family decided to comfort care after discussion with cardiology and pulmonary teams, please refer to their note for more details, eventually patient was . Objective - Vital Signs Vital signs: Vital Signs Temp 96.1 F L 04/04/20 00:00 Pulse 49 L 04/04/20 07:00 Resp 11 L 04/04/20 07:00 BP 126/63 04/04/20 07:00 Pulse Ox 96 04/04/20 07:00 Intake & Output 04/03/20 04/04/20 04/04/20 18:59 06:59 18:59 Intake Total 518.875 374.441 25 Output Total 220 265 45 Balance 298.875 109.441 -20 Weight 89.1 kg Intake: IV 250 25 Sodium Chloride 0.9% 250 250 ml @ 999 mls/hr IV .Q16M DAVON Rx#:[id number] Intake, IV Titration 98.875 374.441 Amount Amiodarone 360 mg In 374.441 Dextrose 5% in Water 200 ml @ 1 MG/MIN 33.333 mls/ hr IV .Q6H DAVON Rx#: [id number] Lidocaine-D5w Pmx 2G/ 98.875 250Ml 2,000 mg In Dextrose/Water 1 250ml. bag @ 1 MG/MIN 7.5 mls/hr IV .Q24H DAVON Rx#: [id number] Oral 170 Output: Urine 220 265 45 Other: Voiding Method Indwelling Catheter Indwelling Catheter - Labs CBC & Chem 7: 04/04/20 05:03 04/04/20 05:03 Labs: Abnormal Lab Results - Last 24 Hours (Table) 04/03/20 04/03/20 04/03/20 Range/Units 16:40 16:44 19:52 WBC (3.8-10.6) k/uL Sodium 127 L (137-145) mmol/L Chloride 96 L (98-107) mmol/L Carbon Dioxide 20 L (22-30) mmol/L BUN 58 H (7-17) mg/dL Creatinine 1.76 H (0.52-1.04) mg/dL Glucose 233 H (74-99) mg/dL POC Glucose (mg/dL) 224 H 213 H (75-99) mg/dL Magnesium (1.6-2.3) mg/dL Procalcitonin (0.02-0.09) ng/mL 04/04/20 04/04/20 04/04/20 Range/Units 05:03 05:03 05:03 WBC 13.6 H (3.8-10.6) k/uL Sodium 126 L (137-145) mmol/L Chloride 95 L (98-107) mmol/L Carbon Dioxide 20 L (22-30) mmol/L BUN 66 H (7-17) mg/dL Creatinine 1.90 H (0.52-1.04) mg/dL Glucose 214 H (74-99) mg/dL POC Glucose (mg/dL) (75-99) mg/dL Magnesium 2.6 H (1.6-2.3) mg/dL Procalcitonin 0.77 H (0.02-0.09) ng/mL 04/04/20 04/04/20 Range/Units 06:25 11:24 WBC (3.8-10.6) k/uL Sodium (137-145) mmol/L Chloride (98-107) mmol/L Carbon Dioxide (22-30) mmol/L BUN (7-17) mg/dL Creatinine (0.52-1.04) mg/dL Glucose (74-99) mg/dL POC Glucose (mg/dL) 219 H 293 H (75-99) mg/dL Magnesium (1.6-2.3) mg/dL Procalcitonin (0.02-0.09) ng/mL Microbiology - Last 24 Hours (Table) 04/03/20 10:05 Urine Culture - Preliminary Urine,Voided Assessment and Plan Assessment: Acute non-ST elevation myocardial infarction, status post cardiac cath showed triple vessel coronary artery disease and status post stent placement of the LAD Acute kidney injury with oliguria Possible acute urinary tract infection Cardiogenic shock status post pressors, improved Polymorphic ventricular tachycardia, various episodes needing multiple shock Atrial fibrillation Leukocytosis, mostly reactive. Diabetes mellitus with Hyperglycemia, check hemoglobin A1c Plan: Patient
[2020-04-05] MEDS ORDERED: ceFAZolin 1,000 MG in SODIUM CHLORIDE 0.9% IRRIGATIO 250 ML IRRIGATION ONE (07:00)
--- NOTE | 2020-04-05 18:44 | P.PN ---
Progress Note - Text Progress Note Date: 04/04/20 This is a late note entry. CODE BLUE note CODE BLUE was called around 11:05 AM on 04/04/2020. Patient was noted to be in PEA and high-quality chest compressions were started. She was given epinephrine and bicarbonate. She then went into ventricular tachycardia. Patient was cardioverted at 200 J for ventricular tachycardia. She was also bolus amiodarone 150 mg IV. Patient was able to achieve return of spontaneous circulation. Please refer to code sheet for full details. Primary attending was notified. Mixing Pan Tender Dr. Aviles was notified and was at bedside during this CODE BLUE. These series of events took approximately 35 minutes.
--- NOTE | 2020-04-08 07:41 | CDI ---
Documentation Clarification Form Date: 04/08/20 From: Alejandra Navarrete Phone: If you have a question about this query, please contact Lizz Curran, Russian History Professor at [phone] between 8am and 5pm. Admit Date: 03/30/20 Discharge Date:04/04/20 Patient Name: Beth Jones Visit Number: [id number] ATTENTION: The Clinical Documentation Specialists (CDI) and [facility] Coding Staff appreciate your assistance in clarifying documentation. Please respond to the clarification below the line at the bottom and electronically sign. The CDI & [facility] Coding staff will review the response and follow-up if needed. Please note: Queries are made part of the Legal Health Record. If you have any questions, please contact the author of this message via ITS. Dear Dr. Pulliam Cardiorenal syndrome was documented in the 04/03 cardiology progress note. Acute kidney injury, secondary to cardiorenal causes is documented in the 04/03 pulmonology progress note. Acute kidney injury secondary to ATN is documented in your consult note and Dr. Alba's progress notes on 04/03 and 04/04. History/Risk Factors: NSTEMI, cardiogenic shock, hypertension, DM, acute systolic CHF Patients baseline BUN/CR/GFR: 20/1. Clinical Indicators: Elevated creatinine, decreased GFR Current BUN/Cr/GFR: 66/1.90/25 on 04/04/20 Treatment: Hold diuretics, monitored renal function daily IVF: 1 L bolus NS on 04/03 then at 250 mls/hr In order to capture the severity of condition, please clarify if the condition signifies: Acute renal failure, Please specify etiology (if known): Cortical Necrosis Medullary Necrosis Tubular Necrosis Acute kidney injury Acute on chronic renal failure CKD Stage 1 GFR >90 CKD Stage 2 GFR 60-89 CKD Stage 3 GFR 30-59 CKD Stage 4 GFR 15-29 CKD Stage 5 GFR <15 Chronic renal failure/Chronic Kidney disease (CKD) please stage (if known): CKD Stage 1 GFR >90 CKD Stage 2 GFR 60-89 CKD Stage 3 GFR 30-59 CKD Stage 4 GFR 15-29 CKD Stage 5 GFR <15 ESRD Other, please specify Unable to determine atn MTDD
--- NOTE | 2020-04-08 07:54 | CDI ---
Documentation Clarification Form Date: 04/08/20 From: Alejandra Navarrete Phone: If you have a question about this query, please contact Lizz Curran, Wheel Aligner at [phone] between 8am and 5pm. Admit Date: 03/30/20 Discharge Date:04/04/20 Patient Name: Beth Jones Visit Number: [id number] ATTENTION: The Clinical Documentation Specialists (CDI) and [facility] Coding Staff appreciate your assistance in clarifying documentation. Please respond to the clarification below the line at the bottom and electronically sign. The CDI & [facility] Coding staff will review the response and follow-up if needed. Please note: Queries are made part of the Legal Health Record. If you have any questions, please contact the author of this message via ITS. Dear Dr. Alba Altered Mental Status was documented in the ED note. History/Risk Factors: NSTEMI, cardiogenic shock, PCI proximal LAD, Clinical Indicators: lethargic Labs: WBC 11.4, carbon dioxide 20, BUN 20, glucose 263, AST 49, Troponin 2.990 X Ray: Pleural reaction and fluid and minimal infiltrate left lung base is mostly new compared to old exam. No heart failure. Treatment: PCI proximal LAD, 1 liter NS bolus, In your professional opinion, please clarify the etiology of the Altered Mental Status, if known. Delirium (specify cause): Dementia (if know, specify Type and if with/without Behavioral Disturbance) Encephalopathy (specify Type and Underlying Medical Illness) Other condition (please specify) Unable to determine Unable to determine, please refer to ed team MTDD
--- NOTE | 2020-04-14 13:10 | CDI ---
Documentation Clarification Form Date: 04/14/20 From: Alejandra Navarrete Phone: If you have a question about this query, please contact Lizz Curran, Construction [employer] at [phone] between 8am and 5pm. Admit Date: 03/30/20 Discharge Date:04/04/20 Patient Name: Beth Jones Visit Number: [id number] ATTENTION: The Clinical Documentation Specialists (CDI) and [facility] Coding Staff appreciate your assistance in clarifying documentation. Please respond to the clarification below the line at the bottom and electronically sign. The CDI & [facility] Coding staff will review the response and follow-up if needed. Please note: Queries are made part of the Legal Health Record. If you have any questions, please contact the author of this message via ITS. Dear Dr. Cage Altered Mental Status was documented in the ED note. History/Risk Factors: NSTEMI, cardiogenic shock, PCI proximal LAD, Clinical Indicators: lethargic Labs: WBC 11.4, carbon dioxide 20, BUN 20, glucose 263, AST 49, Troponin 2.990 X Ray: Pleural reaction and fluid and minimal infiltrate left lung base is mostly new compared to old exam. No heart failure. Treatment: PCI proximal LAD, 1 liter NS bolus, In your professional opinion, please clarify the etiology of the Altered Mental Status, if known. Delirium (specify cause): Dementia (if know, specify Type and if with/without Behavioral Disturbance) Encephalopathy (specify Type and Underlying Medical Illness) acute metabolic encephalopathy secondary to subacute infarct, NSTEMI, cardiogenic shock Other condition (please specify) Unable to determine MTDD
--- NOTE | 2020-04-17 10:56 | CDI ---
Documentation Clarification Form Date: 04/17/20 From: Alejandra Navarrete Phone: If you have a question about this query, please contact Lizz Curran, Buck Presser at [phone] between 8am and 5pm. Admit Date: 03/30/20 Discharge Date:04/04/20 Patient Name: Beth Jones Visit Number: [id number] ATTENTION: The Clinical Documentation Specialists (CDI) and [facility] Coding Staff appreciate your assistance in clarifying documentation. Please respond to the clarification below the line at the bottom and electronically sign. The CDI & [facility] Coding staff will review the response and follow-up if needed. Please note: Queries are made part of the Legal Health Record. If you have any questions, please contact the author of this message via ITS. Dear Dr. Cage Altered Mental Status was documented in the ED note. History/Risk Factors: NSTEMI, cardiogenic shock, PCI proximal LAD, Clinical Indicators: lethargic Labs: WBC 11.4, carbon dioxide 20, BUN 20, glucose 263, AST 49, Tropoiin 2.990 X Ray: Pleural reaction and fluid and minimal infiltrate left lung base is mostly new compared to old exam. No heart failure. Treatment: PCI proximal LAD, 1 liter NS bolus, In your professional opinion, please clarify the etiology of the Altered Mental Status, if known. Delirium (specify cause): Dementia (if know, specify Type and if with/without Behavioral Disturbance) Encephalopathy (specify Type and Underlying Medical Illness) Other condition (please specify) Unable to determine MTDD
--- NOTE | 2020-04-22 07:17 | P.DS ---
Providers Date of admission: 03/30/20 21:33 Attending physician: Kira Camacho Consults: 03/30/20 21:33 Consult Physician Stat Consulting Provider: Jhon Sidhu Consult Reason/Comments: acute chest pain, afib with rvr Do you want consulting provider notified?: Already Contacted Consult Physician Urgent Consulting Provider: Les Grace Consult Reason/Comments: acute chest pain, acute hypotension, afib with rvr Do you want consulting provider notified?: Already Contacted 03/30/20 23:04 Consult Physician Routine Consulting Provider: [facility] Consult Reason/Comments: Post Interventional patient Do you want consulting provider notified?: Already Contacted 04/03/20 09:14 Consult Physician Urgent Consulting Provider: Dhaval Pulliam Consult Reason/Comments: t[place]anda Do you want consulting provider notified?: Yes Primary care physician: Haylee Sun Hospital Course: Diagnoses: Acute non-ST elevation myocardial infarction, status post cardiac cath showed triple vessel coronary artery disease and status post stent placement of the LAD Polymorphic ventricular tachycardia, various episodes needing multiple shock Atrial fibrillation Acute kidney injury with oliguria Possible acute urinary tract infection Cardiogenic shock status post pressors, improved temporarily Leukocytosis, mostly reactive. Diabetes mellitus with Hyperglycemia, check hemoglobin A1c Hospital course: This is an 79 years old female with multiple medical problem she was admitted to the hospital for chest pain and she was treated for non-STEMI status post cardiac cath and stent placement. With low ejection fraction on echocardiogram at 20-25%, patient admitted to the ICU with close monitoring with several consultants on the case with the pulmonary and cardiology, patient developed several episodes of cardiac arrhythmia and sustained ventricular tachycardia that required cardioversion, also atrial fibrillation and bradycardia. Patient did poorly with no significant improvement, her case was progressed and degenerated and family decided to go for comfort care. Patient , please refer to my progress note from the same day for more details, please refer to the pulmonary and cardiology team notes for more details. Patient Condition at Discharge: Serious Plan - Discharge Summary Discharge Rx Participant: No New Discharge Prescriptions: New Ticagrelor [Brilinta] 90 mg PO BID 30 Days #60 tab No Action metFORMIN HCL 1,000 mg PO BID atenoloL [Atenolol] 25 mg PO DAILY Aspirin [Adult Low Dose Aspirin EC] 81 mg PO DAILY amLODIPine [Norvasc] 5 mg PO DAILY Losartan [Cozaar] 50 mg PO DAILY Glimepiride [Amaryl] 1 mg PO DAILY Atorvastatin [Lipitor] 40 mg PO DAILY Discharge Medication List Aspirin [Adult Low Dose Aspirin EC] 81 mg PO DAILY 03/30/20 [History] Atorvastatin [Lipitor] 40 mg PO DAILY 03/30/20 [History] Glimepiride [Amaryl] 1 mg PO DAILY 03/30/20 [History] Losartan [Cozaar] 50 mg PO DAILY 03/30/20 [History] amLODIPine [Norvasc] 5 mg PO DAILY 03/30/20 [History] atenoloL [Atenolol] 25 mg PO DAILY 03/30/20 [History] metFORMIN HCL 1,000 mg PO BID 03/30/20 [History] Ticagrelor [Brilinta] 90 mg PO BID 30 Days #60 tab 04/03/20 [Rx] Follow up Appointment(s)/Referral(s): Haylee Sun MD [Primary Care Provider] - 1-2 days Discharge Disposition: - Preliminary Cause of Preliminary Cause of : non stemi with arrhythmia
== END 2020-04-04 15:07 | disposition expired | DRG 246 ==
LOC: EC 19:53 → 2SICU 21:33
PROVIDERS: ADMIT Hospitalist; ATTEND Hospitalist
PROC: 3E033XZ Introduction of Vasopressor into Peripheral Vein, Percutaneous Approach (ICD-10-PCS; 2020-03-30)
PROC: 027034Z Dilation of Coronary Artery, One Artery with Drug-eluting Intraluminal Device, Percutaneous Approach (ICD-10-PCS; principal; 2020-03-30 21:29)
PROC: 4A023N7 Measurement of Cardiac Sampling and Pressure, Left Heart, Percutaneous Approach (ICD-10-PCS; 2020-03-30 21:29)
PROC: B2111ZZ Fluoroscopy of Multiple Coronary Arteries using Low Osmolar Contrast (ICD-10-PCS; 2020-03-30 21:29)
PROC: 5A2204Z Restoration of Cardiac Rhythm, Single (ICD-10-PCS; 2020-04-01)
PROC: 5A1935Z Respiratory Ventilation, Less than 24 Consecutive Hours (ICD-10-PCS; 2020-04-04)
PROC: 0BH17EZ Insertion of Endotracheal Airway into Trachea, Via Natural or Artificial Opening (ICD-10-PCS; 2020-04-04)
PROC: 5A12012 Performance of Cardiac Output, Single, Manual (ICD-10-PCS; 2020-04-04)
DX: I21.4 Non-ST elevation (NSTEMI) myocardial infarction (principal); I49.02 Ventricular flutter; I50.23 Acute on chronic systolic (congestive) heart failure; N17.0 Acute kidney failure with tubular necrosis; G93.41 Metabolic encephalopathy; E87.1 Hypo-osmolality and hyponatremia; E87.2 Acidosis; J98.11 Atelectasis; N39.0 Urinary tract infection, site not specified; I47.2 Ventricular tachycardia; I25.5 Ischemic cardiomyopathy; I46.2 Cardiac arrest due to underlying cardiac condition; I49.01 Ventricular fibrillation; I27.20 Pulmonary hypertension, unspecified; K72.90 Hepatic failure, unspecified without coma; I11.0 Hypertensive heart disease with heart failure; Z51.5 Encounter for palliative care; Z66 Do not resuscitate; E11.65 Type 2 diabetes mellitus with hyperglycemia; I48.0 Paroxysmal atrial fibrillation; R40.2352 Coma scale, best motor response, localizes pain, at arrival to emergency department; R40.2132 Coma scale, eyes open, to sound, at arrival to emergency department; R40.2252 Coma scale, best verbal response, oriented, at arrival to emergency department; I45.10 Unspecified right bundle-branch block; E78.00 Pure hypercholesterolemia, unspecified; D72.829 Elevated white blood cell count, unspecified; E78.5 Hyperlipidemia, unspecified; I07.1 Rheumatic tricuspid insufficiency; I25.10 Atherosclerotic heart disease of native coronary artery without angina pectoris; T50.8X5A Adverse effect of diagnostic agents, initial encounter; I49.3 Ventricular premature depolarization; Z79.02 Long term (current) use of antithrombotics/antiplatelets; Z79.82 Long term (current) use of aspirin; Z79.899 Other long term (current) drug therapy; Z79.84 Long term (current) use of oral hypoglycemic drugs; Z90.49 Acquired absence of other specified parts of digestive tract; Z82.3 Family history of stroke
CPT/HCPCS: 36415; 71045; 80048; 80053; 81001; 83036; 83735; 83880; 84132; 84145; 84484; 85025; 85027; 85610; 85730; 87077; 87086; 87186; 93005; 93306; 93458; 94002; 96365; 99285